=== PATIENT | male | born 1965 | race Caucasian/White ===

== ENCOUNTER 2020-04-29 06:47 | Outpatient (NON) | payer BC, SELFPAY ==
[2020-04-29 22:14] LABS: SARS-CoV-2 RNA PCR Negative
== END 2020-04-29 06:48 ==
LOC: ANHCOVIDDT 06:58
PROVIDERS: Visit Provider Nurse Practitioner Family
DX: Z20.828 Contact with and (suspected) exposure to other viral communicable diseases (principal)
CPT/HCPCS: 87635; C9803; U0003

== ENCOUNTER → 2020-05-04 14:39 | Outpatient (CLI) | payer BC, SELFPAY ==
--- NOTE | ~2020-05-04 | XR_ITS ---
EXAMINATION: XR chest 2V EXAM DATE: 05/04/2020 14:59 INDICATION: R06.02 - Shortness of breath . TECHNIQUE: Frontal and lateral projections of the chest obtained and reviewed. There is no prior vero dy for comparison. FINDINGS: The cardiac silhouette is enlarged. There is pulmonary vascular congestion. Possible mild pulmonary edema. There are small bilateral pleural effusions. Overall appearance is consistent with m ild CHF exacerbation. There is no pneumothorax suspected. No focal airspace disease. There are no oss eous abnormalities identified. IMPRESSION: Findings consistent with mild CHF exacerbation. Reviewed, dictated and finalized at location B. TECHNICIAN
== END ==
PROVIDERS: PCP Nurse Practitioner Family; Visit Provider Nurse Practitioner Family
DX: R06.02 Shortness of breath (principal); R91.8 Other nonspecific abnormal finding of lung field
CPT/HCPCS: 71046

== ENCOUNTER 2020-05-04 15:30 | Outpatient (CLI) | payer BC, SELFPAY ==
--- NOTE | 2020-05-04 15:45 | ECG_ITS ---
Measurements Intervals [place] Rate: 129 P: [place]: 0 QRS: 50 QRSD: 110 T: -13 QT: 301 QTc: 441 Interpretive Statements ATRIAL FIBRILLATION WITH RAPID VENTRICULAR RESPONSE VENTRICULAR PREMATURE COMPLEXES NONSPECIFIC ST & T-WAVE ABNORMALITY- INF/LAT LEADS ABNORMAL ECG Electronically Signed On 05-04-2020 18:49:26 INSURANCE POLICY ISSUE CLERK by Mauricio Norris D.O.
== END 2020-05-04 15:31 | disposition home or self-care (01) ==
LOC: ANHLAB 15:33
PROVIDERS: PCP Nurse Practitioner Family; Visit Provider Nurse Practitioner Family
DX: R00.2 Palpitations (principal); I48.91 Unspecified atrial fibrillation
CPT/HCPCS: 93005

== ENCOUNTER 2020-05-05 10:32 | Outpatient (CLI) | payer BC, SELFPAY ==
[2020-05-05 11:08] LABS: Basophils Absolute Auto 0.1 K/mm3 (0.0-0.1); Basophils Percent Auto 0.8 % (0.2-1.2); Eosinophils Absolute Auto 0.1 K/mm3 (0-0.3); Eosinophils Percent Auto 1.7 % (0-4.4); Hematocrit 44.5 % (42.0-52.0); Hemoglobin 14.3 g/dL (14.0-18.0); Immature Granulocyte Absolute 0.03 K/mm3 (0.00-0.031); Immature Granulocyte Percent A 0.4 % (0-0.5); Lymphocytes Absolute Auto 1.81 K/mm3 (0.9-3.2); Lymphocytes Percent Auto 21.4 % (18.3-44.2); Mean Corpuscular HGB Conc 32.1 g/dl (32-36); Mean Corpuscular Volume 81.1 fl (80-100); Mean Platelet Volume 9.3 fl (7.4-10.4); Monocytes Absolute Auto 0.8 K/mm3 (0.1-0.6); Monocytes Percent Auto 9.1 % (2.6-8.5); Neutrophils Absolute Auto 5.7 K/mm3 (1.3-6.7); Neutrophils Percent Auto 66.6 % (45.5-73.1); Platelet Count Result 287 k/mm3 (150-375); Red Blood Count 5.49 M/mm3 (4.6-6.20); Red Cell Distribution Width 14.3 % (11.5-14.5); White Blood Count 8.5 K/mm3 (4.5-10.0)
[2020-05-05 11:27] LABS: Alanine Aminotransferase 40 U/L (4-50); Albumin Level 3.9 g/dL (3.5-5.1); Alkaline Phosphatase 44 U/L (38-126); Anion Gap 7 mmol/L (8-16); Aspartate Amino Transferase 32 U/L (17-59); Bilirubin,Total 0.6 mg/dL (0.2-1.3); Blood Urea Nitrogen 20 mg/dL (9-20); Calcium 8.6 mg/dL (8.4-10.2); Carbon Dioxide 25 mmol/L (22-30); Chloride 106 mmol/L (98-107); Estimated Glomerular Filt Rate 53; Glucose 100 mg/dL (75-110); Magnesium 2.4 mg/dL (1.6-2.3); Potassium 4.3 mmol/L (3.4-5.0); Sodium 138 mmol/L (137-145)
[2020-05-05 11:33] LABS: NT Pro B Type Natriuretic Pept 4380 PG/ML (5-100)
== END 2020-05-05 10:33 | disposition home or self-care (01) ==
PROVIDERS: PCP Nurse Practitioner Family; Visit Provider Nurse Practitioner Family
DX: I48.91 Unspecified atrial fibrillation (principal); E03.9 Hypothyroidism, unspecified
CPT/HCPCS: 36415; 80053; 83735; 83880; 84443; 85025

== ENCOUNTER 2020-05-08 08:46 | Outpatient (CLI) | payer BC, SELFPAY ==
[2020-05-08 09:21] LABS: Alanine Aminotransferase 39 U/L (4-50); Alkaline Phosphatase 34 U/L (38-126); Anion Gap 8 mmol/L (8-16); Aspartate Amino Transferase 34 U/L (17-59); Bilirubin,Total 0.7 mg/dL (0.2-1.3); Blood Urea Nitrogen 20 mg/dL (9-20); Carbon Dioxide 28 mmol/L (22-30); Chloride 103 mmol/L (98-107); Estimated Glomerular Filt Rate 58; Glucose 118 mg/dL (75-110); Magnesium 2.4 mg/dL (1.6-2.3); Potassium 4.6 mmol/L (3.4-5.0); Sodium 139 mmol/L (137-145)
[2020-05-08 09:30] LABS: NT Pro B Type Natriuretic Pept 3800 PG/ML (5-100)
== END 2020-05-08 08:47 | disposition home or self-care (01) ==
PROVIDERS: PCP Nurse Practitioner Family; Visit Provider Nurse Practitioner Family
DX: I50.9 Heart failure, unspecified (principal); E83.41 Hypermagnesemia
CPT/HCPCS: 36415; 80053; 83735; 83880

== ENCOUNTER 2020-05-08 16:06 | Inpatient (IN) | payer BC, SELFPAY ==
[2020-05-08] VITALS (8 sets, daily range): BP systolic 103–152; BP diastolic 71–123; PULSE 104–132; RESP 18–31; TEMP 36.6; O2SAT 94–96; BMI 42.7
--- NOTE | ~2020-05-08 | US_ITS ---
EXAMINATION: US venous doppler [facility] DATE: 05/09/2020 14:38 INDICATION: Lower limb edema. TECHNIQUE: Grayscale ultrasound images without and with compression and Doppler ultrasound images of the bilateral lower extremity veins were obtained. COMPARISON: Ultrasound 01/20/2017 FINDINGS: The visualized portions of right common femoral vein, profunda (deep) femoral vein, femoral vein, pop liteal vein, peroneal veins, posterior tibial veins, and greater saphenous vein outflow are patent. The visualized portions of left common femoral vein, profunda femoral vein, femoral vein, popliteal v ein, peroneal veins, posterior tibial veins, and greater saphenous vein outflow are patent. IMPRESSION: 1. No deep venous thrombosis. Reviewed, dictated and finalized at location B. PASTEURIZER
--- NOTE | ~2020-05-08 | XR_ITS ---
EXAMINATION: XR chest 2V DATE: 05/08/2020 16:39 INDICATION: Arrhythmia. Shortness of breath. TECHNIQUE: Frontal and lateral views of the chest were obtained. COMPARISON: Chest 2 views 05/04/2020, CT abdomen and pelvis 05/08/2006 FINDINGS: There are small pleural effusions. There is mild atelectasis at the lung bases. No pneumoth orax. Cardiomegaly is noted. IMPRESSION: 1. Small pleural effusions. 2. Cardiomegaly. Reviewed, dictated and finalized at location B. ORATE ACCOUNT EXECUTIVE
--- NOTE | 2020-05-08 16:19 | ECG_ITS ---
Measurements Intervals [place] Rate: 125 P: [place]: 0 QRS: 44 QRSD: 107 T: -34 QT: 329 QTc: 474 Interpretive Statements ATRIAL FIBRILLATION WITH RAPID VENTRICULAR RESPONSE VENTRICULAR PREMATURE COMPLEXES NONSPECIFIC ST & T-WAVE ABNORMALITY- INF/LAT LEADS ABNORMAL ECG Electronically Signed On 05-08-2020 20:04:17 RADIO CONTROL CRANE OPERATOR by Mauricio Norris D.O.
[2020-05-08] MEDS: dilTIAZem HCl INJ 25 MG/5 ML VIAL 10 MG IV PUSH (16:30)
[2020-05-08 16:39] LABS: Basophils Absolute Auto 0.1 K/mm3 (0.0-0.1); Basophils Percent Auto 0.7 % (0.2-1.2); Eosinophils Absolute Auto 0.2 K/mm3 (0-0.3); Eosinophils Percent Auto 1.9 % (0-4.4); Hematocrit 46.2 % (42.0-52.0); Hemoglobin 15.2 g/dL (14.0-18.0); Immature Granulocyte Absolute 0.02 K/mm3 (0.00-0.031); Immature Granulocyte Percent A 0.2 % (0-0.5); Lymphocytes Absolute Auto 1.98 K/mm3 (0.9-3.2); Lymphocytes Percent Auto 24.6 % (18.3-44.2); Mean Corpuscular HGB Conc 32.9 g/dl (32-36); Mean Corpuscular Hemoglobin 26.8 pg (26-34); Mean Corpuscular Volume 81.3 fl (80-100); Mean Platelet Volume 9.7 fl (7.4-10.4); Monocytes Absolute Auto 0.7 K/mm3 (0.1-0.6); Monocytes Percent Auto 8.1 % (2.6-8.5); Neutrophils Absolute Auto 5.2 K/mm3 (1.3-6.7); Neutrophils Percent Auto 64.5 % (45.5-73.1); Platelet Count Result 278 k/mm3 (150-375); Red Blood Count 5.68 M/mm3 (4.6-6.20); Red Cell Distribution Width 14.5 % (11.5-14.5); White Blood Count 8.1 K/mm3 (4.5-10.0)
[2020-05-08 16:52] LABS: Anion Gap 9 mmol/L (8-16); Blood Urea Nitrogen 21 mg/dL (9-20); Calcium 8.8 mg/dL (8.4-10.2); Carbon Dioxide 23 mmol/L (22-30); Chloride 106 mmol/L (98-107); Estimated CRCL calculation 100 ml/min; Estimated Glomerular Filt Rate 58; Glucose 98 mg/dL (75-110); Potassium 4.4 mmol/L (3.4-5.0); Sodium 138 mmol/L (137-145)
[2020-05-08 16:53] LABS: Prothrombin Time 13.4 Seconds (11.1-14.7)
[2020-05-08 16:54] LABS: Partial Thromboplastin Time 27.2 SECONDS (22.3-36.8)
[2020-05-08] MEDS: dilTIAZem HCl INJ 25 MG/5 ML VIAL 15 MG IV PUSH (16:59)
[2020-05-08 17:04] LABS: Troponin I 0.012 ng/mL (0.000-0.034)
--- NOTE | 2020-05-08 17:18 | ED.SOB ---
HPI - SOB/Dyspnea General Chief Complaint: Shortness of Breath/Dyspnea Stated Complaint: A-Fib Time Seen by Provider: 05/08/20 16:11 History of Present Illness HPI Narrative: Patient is a 55-year-old male who presents ER with shortness of breath. Reported symptoms been ongoing for couple weeks. Initially it was related to sinus congestion and sinus infection but since cleared up. Reports because of shortness of breath continues is physician had ordered an outpatient BNP that was elevated so he was started on metoprolol and Lasix. Symptoms persist so he was sent to the ER. No previous history of irregular heartbeat or other cardiac issue. Reports he has had some chest pressure over the course of weeks related to the shortness of breath but none currently. No fevers or chills or sweats. No productive cough. Related Data Home Medications Medication Instructions Recorded Confirmed furosemide 20 mg PO QPM 05/08/20 05/08/20 furosemide 40 mg PO DAILY 05/08/20 05/08/20 metoprolol succinate 50 mg PO QPM 05/08/20 05/08/20 Allergies Allergy/AdvReac Type Severity Reaction Status Date / Time No Known Allergies Allergy Unknown Verified 05/08/20 21:18 Review of Systems Review of Systems: All systems reviewed & are unremarkable except as noted in HPI and below Constitutional: Constitutional: Denies chills, Denies fever(s) and Denies weakness ENT: Reports nasal congestion and Denies sore throat Cardiovascular: Cardiovascular: Reports chest pain and Denies radiating jaw, neck or arm pain Respiratory: Respiratory: Denies cough, Reports dyspnea and Denies wheezing [facility] Past Medical History Medical History (Updated 05/09/20 @ 00:55 by Vlad Oliva MD) Hyperlipidemia Joint pain Right knee and left ankle Surgical History Surgical History (Updated 05/08/20 @ 21:41 by Kristin Menjivar NP) H/O hand surgery Right pointer finger tendon repair History of colonoscopy with polypectomy (~03/2017) Family History Family History Mother Family history of thyroid disease Dementia Father Family history of malignant neoplasm of stomach Sibling Asthma Cardiac defibrillator in place Social History Social History (Updated 05/08/20 @ 21:42 by Kristin Menjivar NP) Social History: The patient resides with his who is a durable power tractor operator laser leveling for healthcare. Patient desires to be a full code. The patient has 3 children who are well and healthy. 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 Patient is lifelong nonsmoker. No marijuana or substance abuse he rarely drinks. Smoking status: Never smoker Second hand tobacco smoke exposure: No Alcohol intake: never Substance use: never Living arrangements: with family Occupation/Education: occupation Spiritual care concerns: No Exam Narrative: Exam Narrative: GENERAL: Well-appearing, well-nourished, and in no acute distress. HEAD: Normocephalic, atraumatic. CHEST: Clear to auscultation. No respiratory distress. HEART: Irregular regular rate and rhythm is tachycardic. Normal peripheral pulses. ABDOMEN: Soft, nontender, nondistended. EXTREMITIES: Normal range of motion. No edema. SKIN: Warm, dry, no rash. NEURO: Alert and oriented x3. PSYCH: Normal mood and affect. Course Course Emergency Course: Discussed with Dr. Hinson. Admit to hospitalist. Give oral diltiazem and lovenox 1 mg/kg. Vital Signs Vital signs: Vital Signs Pulse Rate 132 H 05/08/20 16:14 Respiratory Rate 31 H 05/08/20 16:14 Blood Pressure 152/123 H 05/08/20 16:14 Pulse Oximetry 96 05/08/20 16:14 Temperature 97.9 F 05/08/20 23:33 Pulse Rate 109 H 05/08/20 23:33 Respiratory Rate 20 05/08/20 23:33 Blood Pressure 103/71 05/08/20 23:33 Pulse Oximetry 95 05/08/20 23:33 MDM - SOB/Dyspnea Lab Data Result diagrams: 05/08/20 16:22 05/08/20 16:22 Labs: Lab Results
[2020-05-08] MEDS: ENOXAPARIN 120 MG/0.8 ML SYRINGE 177 MG SUB-Q (19:30)
[2020-05-08] MEDS: dilTIAZem HCL 60 MG TABLET PO (19:30)
[2020-05-08 19:59] LABS: Troponin I 0.012 ng/mL (0.000-0.034)
--- NOTE | 2020-05-08 21:31 | PM.IMHP ---
H&P: HPI History of Present Illness Date/Time: 05/08/20 21:31 Chief complaint: afib, chest pain Narrative: Ok Jeong is a 55 year old male who stated that he started having problems about 3 weeks ago. The patient stated that he typically gets sinus infections and he thought that had a sinus infection about 3 weeks ago. The patient was started on azithromycin which she stated helped some he was having some posterior headaches and some drainage some postnasal drainage which was making him cough. But he did not have any fever chills. Patient stated that he felt like he was congested. He stated initially the congestion just felt like it was in the morning when he 1st woke up he thought it was from all the drainage and with clear during the day but then the patient stated that it started to stay there all day long. He was short of breath with exertion. He has not had any previous heart problems no chest pain other than the chest pressure. He has not seen a entry level truck driver. Approximately 4 days ago the patient was seen by his primary direct care supervisor and was found to be in atrial fibrillation with a rapid heart rate in the 1 teens. Patient was started on Lasix and metoprolol. The patient also has been having some swelling to his lower extremities. He has not had any history is of DVTs 1st troponin was negative. Patient was found to be in AFib RVR today. The patient stated that the metoprolol helped him to get more rest but the Lasix did not help with the swelling. Patient was given aspirin and IV Cardizem x2 subcu Lovenox oral Cardizem. Cardiology was called orders were given for p.o. Cardizem. However the patient remained in the 1 teens and 120s so I held off on the p.o. and started him on a Cardizem drip. The patient has approximately 2+ pitting edema to lower extremities. An echo has been ordered. He has no previous history. 4 days ago was read as findings consistent with mild CHF exacerbation. He has had no prior history. Today's EKG was read as AFib RVR with heart rate in the 120s. Patient is being admitted observation IMU for AFib with RVR. Date of service 05/08/2020 Review of Systems Review of Systems: All systems reviewed & are unremarkable except as noted in HPI and below Constitutional: Constitutional: Reports as per HPI and Reports no additional constitutional complaints Eyes: Eyes: Reports as per HPI and Reports no additional eye complaints ENT: Reports system reviewed and no additional complaints, except as documented and Reports Normal hearing present Cardiovascular: Cardiovascular: Reports no additional cardiovascular complaints Respiratory: Respiratory: Reports no additional respiratory complaints and Reports no additional respiratory complaints Gastrointestinal: Gastrointestinal: Reports as per HPI and Reports no additional gastrointestinal complaints Musculoskeletal: Musculoskeletal: Reports no additional musculoskeletal complaints Integumentary/Breasts: Skin/Breast: Reports system reviewed and no additional complaints, except as docu and Reports as per HPI Neurologic: Reports system reviewed and no additional complaints, except as documented, Reports as per HPI and Reports Normal hearing present Psychiatric: Psychiatric: Reports no additional psychiatric complaints and Reports as per HPI Endocrine: Endocrine: Reports no additional endocrine complaints Hematologic/Lymphatic: Hematologic/Lymphatic: Reports no additional hematologic/lymphatic complaints Allergic/Immunologic: Allergic/Immunologic: Reports no additional allergic/immunologic complaints [facility] Past Medical History Medical History (Updated 05/08/20 @ 21:50 by Kristin Menjivar NP) Hyperlipidemia Joint pain Right knee and left ankle Surgical History Surgical History (Updated 05/08/20 @ 21:41 by Kirstin Menjivar NP) H/O hand surgery Right pointer finger tendon repair History of colonoscopy with polypectomy (~03/2017) Family History Famil
[2020-05-08] MEDS: FUROSEMIDE INJ 40 MG/4 ML VIAL IV PUSH (21:53)
[2020-05-08 22:31] LABS: Troponin I 0.013 ng/mL (0.000-0.034)
[2020-05-09] VITALS (16 sets, daily range): BP systolic 111–145; BP diastolic 77–103; PULSE 75–119; RESP 18–20; TEMP 36.1–36.7; O2SAT 96–99
[2020-05-09 04:58] LABS: Basophils Absolute Auto 0.1 K/mm3 (0.0-0.1); Eosinophils Absolute Auto 0.1 K/mm3 (0-0.3); Eosinophils Percent Auto 1.7 % (0-4.4); Hematocrit 42.9 % (42.0-52.0); Hemoglobin 13.8 g/dL (14.0-18.0); Immature Granulocyte Absolute 0.02 K/mm3 (0.00-0.031); Immature Granulocyte Percent A 0.3 % (0-0.5); Lymphocytes Absolute Auto 1.96 K/mm3 (0.9-3.2); Lymphocytes Percent Auto 27.3 % (18.3-44.2); Mean Corpuscular HGB Conc 32.2 g/dl (32-36); Mean Corpuscular Hemoglobin 26.3 pg (26-34); Mean Corpuscular Volume 81.7 fl (80-100); Mean Platelet Volume 9.6 fl (7.4-10.4); Monocytes Absolute Auto 0.7 K/mm3 (0.1-0.6); Monocytes Percent Auto 9.2 % (2.6-8.5); Neutrophils Absolute Auto 4.4 K/mm3 (1.3-6.7); Neutrophils Percent Auto 60.5 % (45.5-73.1); Platelet Count Result 248 k/mm3 (150-375); Red Blood Count 5.25 M/mm3 (4.6-6.20); Red Cell Distribution Width 14.4 % (11.5-14.5); White Blood Count 7.2 K/mm3 (4.5-10.0)
[2020-05-09 05:20] LABS: Lipase 82 U/L (23-300); Magnesium 2.5 mg/dL (1.6-2.3)
--- NOTE | 2020-05-09 06:00 | ECHO_ITS ---
Patient Info Name: Ok Jeong Age: 55 years : 1965 Gender: Male Ht: 75 in Wt: 342 lbs BSA: 2.93 m2 HR: 100 bpm BP: 145 / 91 mmHg Heart Rhythm: Atrial Fibrillation Technical Quality: Good Exam Date: 05/09/2020 10:16 AM Exam Location: [facility] Patient Status: Inpatient Admit Date: 05/08/2020 Staff Ordering Physician: Vlad Oliva MD [employer] Winder And Oiler: Carlo Hathaway RDCS Attending Provider: Chandler Wang MD Referring Physician: Pj VALDIVIA; Exam Type: CA echo dop color flow w con Study Info Indications I48.0 - Paroxysmal atrial fibrillation Complete two-dimensional, color flow and Doppler transthoracic echocardiogram is performed with contrast to opacify the left ventricle and to improve the deliniation of the left ventricle endocardial borders. Contrast/Agitated Saline Contrast/Ag. Saline: Definity Amount: 3.00 ml Administered By: Allyssa Hand RN Existing IV Access: Yes History/Risk Factors Atrial fibrillation; palptations, chest pain, SOB, CHF, edema. Summary 1. Mild LV enlargement, mild LVH, variable contractility due to atrial fibrillation, difficult to assess ejection fraction. LVEF is visually estimated at about 30-35%. Mild RV enlargement. Mild left atrial enlargement. Normal mitral valve structure, mild MR. No aortic stenosis. Unable to assess RVSP due to inadequate TR jet velocity. Atrial fibrillation. Left Ventricle Left ventricular chamber dimension is mildly enlarged. Left ventricular systolic function is normal, estimated at 30-35%. There is mildly increased left ventricular wall thickness. Left ventricular septal wall motion is normal. The left ventricular diastolic function is abnormal. Right Ventricle Right ventricular chamber dimension is mildly enlarged. Right ventricular systolic function is normal. Left Atria Left atrial chamber dimension is mildly enlarged. Right Atria Right atrial chamber dimension is normal. Aortic Valve The aortic valve is normal. There is no aortic valve stenosis. There is no aortic valve regurgitation. Pulmonic Valve There is mild pulmonic regurgitation. Mitral Valve The mitral valve has normal leaflets. There is mild mitral valve regurgitation. Tricuspid Valve The tricuspid valve leaflets are normal. There is no significant tricuspid valve stenosis. There is no tricuspid valve regurgitation. Pericardium/Pleural The pericardium appears epicardial fat pad. There is no pericardial effusion. Aorta The aortic root size at the sinus of Valsalva is normal. The prox ascending aorta size is normal. Left Ventricular Outflow Tract Name Value Normal LVOT 2D LVOT Diameter 2.08 cm LVOT Doppler LVOT Peak Gradient 5 mmHg LVOT Mean Gradient 3 mmHg LVOT VTI 17.00 cm LVOT VTI/AV VTI Ratio 0.72 LVOT Stroke Volume 57.79 ml LVOT CO 17.35 l/min LVOT CI
--- NOTE | 2020-05-09 07:15 | PC.NURSE ---
This patient, Ok Jeong, was admitted to IMU Room 205-01 on 05/08/2020. Patient/family oriented to hospital policies and general routines including ID bracelet, bed and alarms, visiting hours, pain management, procedures, bathroom and other care routines, personal items, smoking policy, room service/diet, and visiting hours. Information on how to activate the Rapid Response Team has been discussed. Patient/Family are encouraged to report perceived risks to care and to ask questions if they do not understand what they are told or what they should do.
[2020-05-09] MEDS: ENOXAPARIN 80 MG/0.8 ML SYRINGE 155 MG SUB-Q (09:08)
[2020-05-09] MEDS: POTASSIUM CHLORIDE 10 MEQ TABLET.ER PO (09:08)
[2020-05-09] MEDS: FUROSEMIDE INJ 40 MG/4 ML VIAL IV PUSH ×2 (09:08→17:34)
[2020-05-09 09:09] LABS: Hematocrit 43.3 % (42.0-52.0); Hemoglobin 14.1 g/dL (14.0-18.0); Mean Corpuscular HGB Conc 32.6 g/dl (32-36); Mean Corpuscular Hemoglobin 26.9 pg (26-34); Mean Corpuscular Volume 82.5 fl (80-100); Mean Platelet Volume 9.4 fl (7.4-10.4); Platelet Count Result 228 k/mm3 (150-375); Red Blood Count 5.25 M/mm3 (4.6-6.20); Red Cell Distribution Width 14.5 % (11.5-14.5); White Blood Count 6.4 K/mm3 (4.5-10.0)
[2020-05-09 09:24] LABS: Anion Gap 6 mmol/L (8-16); Blood Urea Nitrogen 21 mg/dL (9-20); Calcium 8.3 mg/dL (8.4-10.2); Carbon Dioxide 28 mmol/L (22-30); Chloride 104 mmol/L (98-107); Estimated CRCL calculation 93 ml/min; Estimated Glomerular Filt Rate 58; Glucose 148 mg/dL (75-110); Potassium 3.9 mmol/L (3.4-5.0); Sodium 138 mmol/L (137-145)
--- NOTE | 2020-05-09 09:42 | PM.CNCAR ---
Assessment and Plan Assessment and plan (1) Atrial fibrillation with rapid ventricular response: Code(s): I48.91 - Unspecified atrial fibrillation Status: Acute Assessment and Plan: 55 y/o male with h/o obesity otherwise no significant past medical history (however no medical follow up for many years) who presents with dyspnea, lower ext edema and A fib with RVR Will start Metoprolol at 50 mg BID. Continue Cardizem drip for now 2D echo ordered. If EF low with wean off Cardizem and up titrate BB He likely has DANIELLA suggested by body habitus. Will assess PA pressure and RV on echo. He will need outpatient sleep study CHADsVASC score is 1. He was started on therapeutic dose of Lovenox in ER. Will continue AC for now in case cardioversion needed if HR difficult to control or if EF low (2) CHF (congestive heart failure): Code(s): I50.9 - Heart failure, unspecified Status: Acute Assessment and Plan: Likely has diastolic CHF which is commonly seen in morbid obesity Continue IV lasix at 40 BID. Cr 1.4 on admission, down to 1.3 today. Monitor cr and electrolytes while diuresing Follow 2D echo to assess LV systolic and diastolic function If EF low then will need ischemic evaluation (3) Obesity: Code(s): E66.9 - Obesity, unspecified Status: Acute Assessment and Plan: Check fasting lipid profile and HgA1c History of Present Illness History of Present Illness Consult date/time: 05/09/20 09:42 55 y/o male with h/o obesity otherwise no significant past medical history (however no medical follow up for the last 4-5 years) who presents with dyspnea He developed upper resp symptoms in late Mar for which he had virtual visit with new PCP. He had negative COVID test and was treated with Azithromycin with improvement of symptoms. Following that he started to develop dyspnea which has been gradually getting worse. He had EKG on 05/04 that showed A fib with HR 129. He denies palpitations, dizziness, lightheadedness or chest pain. He reports chronic lower ext edema at baseline but feels it has gotten worse since dyspnea started. He was started on metoprolol and Lasix then saw his PCP in the office yesterday and was still in rapid A fib so he was instructed to go to ER. In ER EKG showed A fib ~ HR 125. He was started on Cardizem drip and his HR down to 90-100, goes to 120 when he gets up to the bathroom. He was also started on IV lasix. He feels somewhat better. Echo was ordered, has not been done yet Labs showed Cr 1.4. K 3.9, Mg 2.5. TSH 2.2. NT pro BNP 4000. Never smoker. Drinks alcohol socially His brother has defibrillator. Mother alive at 91 with no heart disease. Father of cancer. Reason For Visit: afib, chest pain Review of Systems Review of Systems: All systems reviewed & are unremarkable except as noted in HPI and below Constitutional: Constitutional: Denies fatigue and Denies headache(s) Eyes: Eyes: Denies blurry vision ENT: Reports Normal hearing present and Denies headache(s) Cardiovascular: Cardiovascular: Denies chest pain, Denies diaphoresis, Denies pedal edema, Denies leg edema, Denies lightheadedness, Denies palpitations and Denies dyspnea Respiratory: Respiratory: Denies cough and Denies dyspnea Gastrointestinal: Gastrointestinal: Denies abdominal pain Musculoskeletal: Musculoskeletal: Denies back pain Neurologic: Reports Normal hearing present and Denies headache(s) Psychiatric: Psychiatric: Denies anxiety Endocrine: Endocrine: Denies fatigue and Denies palpitations PMFSH Past Medical History Medical History (Updated 05/09/20 @ 10:16 by Ree Murillo MD) Hyperlipidemia Joint pain Right knee and left ankle Surgical History Surgical History (Updated 05/08/20 @ 21:41 by Kristin Menjivar NP) H/O hand surgery Right pointer finger tendon repair History of colonoscopy with polypectomy (~03/2017) Family History Family History (Revi
[2020-05-09] MEDS: PERFLUTREN LIPID MICROSPHERES 1.5 ML VIAL DILUTED TO 10 ML TOTAL VOLUME IV PUSH (10:41)
[2020-05-09] MEDS: METOPROLOL TARTRATE 50 MG TAB PO ×2 (13:08→21:11)
[2020-05-09] MEDS: lisinopriL 5 MG TABLET PO (13:36)
--- NOTE | 2020-05-09 15:46 | PM.IMPN ---
Progress Note: A&P Assessment and Plan (1) Atrial fibrillation: Code(s): I48.91 - Unspecified atrial fibrillation Status: Acute Assessment and Plan: Patient's heart rate remained elevated between 1 teens and 120s. I am holding the oral calcium channel singh in placing the patient on a Cardizem drip a low dose. His Ok score without congestive heart failure is 0 but if it is truly congestive heart failure that is Ok Vasc score is 1. I did empirically start him on therapeutic subcu Lovenox. Further recommendation per Cardiology. An echo has been ordered. Patient's troponin is negative. He has had no previous history of atrial fibrillation. Check thyroid level in the a.m.. Check lipid panel in the a.m.. 05/09/20 15:46 patient is a 55-year-old male morbidly obese initially patient was seen by primary care with complaint of shortness of breath cough and congestion he was started on Zithromax his symptoms did improve however shortness of breath continue to present he was later seen by the primary care an EKG was done which showed atrial fibrillation with RVR at the rate of 129, patient was started on metoprolol 50 mg q.day and Lasix 40 mg p.o., patient's symptoms were persistenting, he was again seen in the primary care's office and repeat EKG again showed AFib with RVR and patient was transferred to ED for further evaluation, patient was given IV diltiazem the rate persistent and patient was started diltiazem drip and transferred to IMU, patient Ok score is 1 patient is anticoagulated with Lovenox will continue in the event patient needs cardioversion, patient is seen by Cardiology recommended to continue present management and trend the rate in hope the patient will convert to sinus rhythm if not patient may need cardioversion, patient had cardiac echo showed moderately decreased systolic function with ejection fraction of 35% abnormal diastolic function, mild enlargement off right and left atrial. will continue to monitor will trend the rate and rhythm and further recommendation to follow. (2) CHF (congestive heart failure): Code(s): I50.9 - Heart failure, unspecified Status: Acute Assessment and Plan: An echo has been ordered for the patient. BNP noted to be 3800. Troponins negative x2. (3) Obesity due to excess calories: Code(s): E66.09 - Other obesity due to excess calories Status: Acute Assessment and Plan: Will check a lipid panel. Subjective Date/time seen: 05/09/20 15:46 patient is a 55-year-old male morbidly obese initially patient was seen by primary care with complaint of shortness of breath cough and congestion he was started on Zithromax his symptoms did improve however shortness of breath continue to present he was later seen by the primary care an EKG was done which showed atrial fibrillation with RVR at the rate of 129, patient was started on metoprolol 50 mg q.day and Lasix 40 mg p.o., patient's symptoms were persistenting, he was again seen in the primary care's office and repeat EKG again showed AFib with RVR and patient was transferred to ED for further evaluation, patient was given IV diltiazem the rate persistent and patient was started diltiazem drip and transferred to IMU, patient Ok score is 1 patient is anticoagulated with Lovenox will continue in the event patient needs cardioversion, patient is seen by Cardiology recommended to continue present management and trend the rate in hope the patient will convert to sinus rhythm if not patient may need cardioversion, patient had cardiac echo showed moderately decreased systolic function with ejection fraction of 35% abnormal diastolic function, mild enlargement off right and left atrial. will continue to monitor will trend the rate and rhythm and further recommendation to follow. Review of Systems Review of Systems: All systems reviewed & are unremarkable except as noted in HPI and below Exam Narrative
[2020-05-10] VITALS (24 sets, daily range): BP systolic 111–143; BP diastolic 65–100; PULSE 77–121; RESP 12–20; TEMP 36–36.7; O2SAT 93–99
[2020-05-10 04:46] LABS: Hematocrit 42.9 % (42.0-52.0); Hemoglobin 14.1 g/dL (14.0-18.0); Mean Corpuscular HGB Conc 32.9 g/dl (32-36); Mean Corpuscular Hemoglobin 26.5 pg (26-34); Mean Corpuscular Volume 80.5 fl (80-100); Mean Platelet Volume 9.2 fl (7.4-10.4); Platelet Count Result 222 k/mm3 (150-375); Red Blood Count 5.33 M/mm3 (4.6-6.20); Red Cell Distribution Width 14.2 % (11.5-14.5); White Blood Count 7.1 K/mm3 (4.5-10.0)
[2020-05-10 05:01] LABS: Anion Gap 7 mmol/L (8-16); Blood Urea Nitrogen 21 mg/dL (9-20); Calcium 8.4 mg/dL (8.4-10.2); Carbon Dioxide 27 mmol/L (22-30); Chloride 106 mmol/L (98-107); Cholesterol 120 mg/dL (0-200); Estimated CRCL calculation 93 ml/min; Estimated Glomerular Filt Rate 58; Glucose 90 mg/dL (75-110); HDL Direct 21 mg/dL; Magnesium 2.5 mg/dL (1.6-2.3); Potassium 3.8 mmol/L (3.4-5.0); Sodium 140 mmol/L (137-145); Triglycerides 162 mg/dL (<150)
[2020-05-10 05:11] LABS: LDL Cholesterol Direct 66 mg/dL
--- NOTE | 2020-05-10 08:59 | PM.PNCARD ---
Progress Note: A&P Assessment and Plan (1) Atrial fibrillation with rapid ventricular response: Code(s): I48.91 - Unspecified atrial fibrillation Status: Acute Assessment and Plan: 55 y/o male with h/o obesity otherwise no significant past medical history (however no medical follow up for many years) who presents with dyspnea, lower ext edema, congestive heart failure and A fib with RVR 2D echo with new discovery of cardiomyopathy. Ischemic Vs non ischemic?. Will plan [facility] this afternoon to find etiology of cardiomyopathy He is diuresing well and feels better. Able to lay flat now. Creatinine stable ~ 1.3. Continue IV lasix. He was started on metoprolol and Lisinopril. Further up titration as BP allows. His rate better controlled on Metoprolol. Goes up ~ 100s with exertion (walking to bathroom). Will add Digoxin today. No needfor IV load CHADsVASC score is 1. Will start ASA. If cath shows clean coronaries then cardiomyopathy could be tachy induced and in this case he would benefit from restoring sinus rhythm with cardioversion. If that is the case then will start AC, otherwise will use ASA for now. (2) CHF (congestive heart failure): Code(s): I50.9 - Heart failure, unspecified Status: Acute Assessment and Plan: Combined systolic and diastolic dysfunction Started BB/ABHIJIT. He likely has sleep apnea suggested by body habitus and symptoms. Will need further work up for that as outpatient (3) Obesity: Code(s): E66.9 - Obesity, unspecified Status: Acute Assessment and Plan: LDL 66. HgA1c 5 Subjective Date/time seen: 05/10/20 08:59 His breathing is remarkable better. Was able to sleep much better last night. Leg edema persists but also coming down. Review of Systems Review of Systems: All systems reviewed & are unremarkable except as noted in HPI and below Constitutional: Constitutional: Denies fatigue and Denies headache(s) Eyes: Eyes: Denies blurry vision ENT: Reports Normal hearing present and Denies headache(s) Cardiovascular: Cardiovascular: Denies chest pain, Denies diaphoresis, Denies pedal edema, Denies leg edema, Denies lightheadedness, Denies palpitations and Denies dyspnea Respiratory: Respiratory: Denies cough and Denies dyspnea Gastrointestinal: Gastrointestinal: Denies abdominal pain Musculoskeletal: Musculoskeletal: Denies back pain Neurologic: Reports Normal hearing present and Denies headache(s) Psychiatric: Psychiatric: Denies anxiety Endocrine: Endocrine: Denies fatigue and Denies palpitations Exam Narrative: Exam Narrative: Obese, in no acute distress Const: General: no acute distress Eyes: Sclera: sclerae normal Neck: Neck: no JVD Carotids: no bruits Resp: Effort & Inspection: normal respiratory effort Auscultation: clear to auscultation bilaterally Cardio: Heart sounds: no gallops, no murmurs and no rubs Other: Irregularly irregular. Tachy. No murmurs. +2 edema bilateral lower ext. JVD difficult to assess due to body habitus. Skin: General skin exam: normal color Neuro: Cranial nerves: Yes Normal hearing present Speech: normal speech Extrem: General: normal to inspection and no edema Psych: Affect: normal affect Objective Data Vital Signs Vital Signs: Vital Signs - 24 hr 05/09/20 10:00 05/09/20 12:00 05/09/20 13:08 Temperature 36.1 C L Pulse Rate 91 111 H 111 H Respiratory Rate 18 Blood Pressure 117/92 H Pulse Oximetry 98 05/09/20 14:00 05/09/20 16:00 05/09/20 18:00 Temperature 36.1 C L Pulse Rate 111 H 99 109 H Respiratory Rate 18 Blood Pressure 132/103 H Pulse Oximetry 97 05/09/20 19:42 05/09/20 20:00 05/09/20 21:11 Temperature 36.7 C Pulse Rate 119 H 105 H 108 H Respiratory Rate 20 Blood Pressure 111/77 Pulse Oximetry 99 05/09/20 22:00 05/10/20 00:00 05/10/20 02:00 Temperature 36.7 C Pulse Rate 97 91 105 H Respiratory Rate 20 Blood Pressure 1
[2020-05-10] MEDS: POTASSIUM CHLORIDE 10 MEQ TABLET.ER PO (09:42)
[2020-05-10] MEDS: lisinopriL 5 MG TABLET PO (09:42)
[2020-05-10] MEDS: FUROSEMIDE INJ 40 MG/4 ML VIAL IV PUSH ×2 (09:43→17:10)
[2020-05-10] MEDS: METOPROLOL TARTRATE 50 MG TAB PO ×2 (09:43→20:55)
--- NOTE | 2020-05-10 11:20 | PC.NURSE ---
Patient to cardiac medical laboratory manager via stretcher. Report given to LOLIS Croft.
--- NOTE | 2020-05-10 12:01 | WPDMODSED ---
Moderate Sedation Note-Pt Data Patient Data Allergies Allergy/AdvReac Type Severity Reaction Status Date / Time No Known Allergies Allergy Unknown Verified 05/08/20 21:18 Home Medications Medication Instructions Recorded Confirmed Type potassium chloride 10 mEq 10 meq PO DAILY #5 tablet 05/04/20 05/08/20 Rx tablet,extended release furosemide 20 mg PO QPM 05/08/20 05/08/20 History furosemide 40 mg PO DAILY 05/08/20 05/08/20 History metoprolol succinate 50 mg PO QPM 05/08/20 05/08/20 History Current Medications: Active Medications Acetaminophen (Acetaminophen 325 Mg Tablet) 650 mg PO Q4H PRN PRN Reason: Mild Pain (1-3) or Fever Hydrocodone Bitart/Acetaminophen (Hydrocodone/Acetaminophen (*Crx) 5-325 Mg Tablet) 1 tab PO Q4H PRN PRN Reason: Pain Rated 4-6 Aspirin (Aspirin 325 Mg Tablet) 325 mg PO DAILY@0800 [facility] Digoxin (Digoxin Tab 125 Mcg Tablet) 125 mcg PO QAM [facility] Furosemide (Furosemide Inj 40 Mg/4 Ml Vial) 40 mg IV PUSH BID [facility] Last Admin: 05/10/20 09:43 Dose: 40 mg Documented by: Lisinopril (Lisinopril 5 Mg Tablet) 5 mg PO QAM [facility] Last Admin: 05/10/20 09:42 Dose: 5 mg Documented by: Metoprolol Tartrate (Metoprolol Tartrate 50 Mg Tab) 50 mg PO Q12HR [facility] Last Admin: 05/10/20 09:43 Dose: 50 mg Documented by: Morphine Sulfate (Morphine Sulfate (*Crx) 4 Mg/Ml Inj) 4 mg IV PUSH Q2H PRN PRN Reason: Pain Rated 7-10 Ondansetron HCl (Ondansetron Inj 4 Mg/2 Ml Vial) 4 mg IV PUSH Q4H PRN PRN Reason: Nausea Potassium Chloride (Potassium Chloride 10 Meq Tablet.Er) 10 meq PO DAILY [facility] Last Admin: 05/10/20 09:42 Dose: 10 meq Documented by: Sedation/Anesthesia: No previous sedation/anesthesia problems (including family history). [facility] Past Medical History Medical History (Updated 05/09/20 @ 10:16 by Ree Murillo MD) Hyperlipidemia Joint pain Right knee and left ankle Surgical History Surgical History (Updated 05/08/20 @ 21:41 by Kristin Menjivar NP) H/O hand surgery Right pointer finger tendon repair History of colonoscopy with polypectomy (~03/2017) Family History Family History Mother Family history of thyroid disease Dementia Father Family history of malignant neoplasm of stomach Sibling Asthma Cardiac defibrillator in place Social History Social History (Updated 05/08/20 @ 21:42 by Kristin Menjivar NP) Social History: The patient resides with his who is a durable power contract attorney for healthcare. Patient desires to be a full code. The patient has 3 children who are well and healthy. 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 Patient is lifelong nonsmoker. No marijuana or substance abuse he rarely drinks. Smoking status: Never smoker Second hand tobacco smoke exposure: No Alcohol intake: never Substance use: never Living arrangements: with family Occupation/Education: occupation Spiritual care concerns: No Mod Sed Physical Exam Physical Exam Pre Procedural Exam: Normal: Appearance, Eyes, Ears, Nose, Neck, Throat, Airway, Lungs, Heart Size, Heart Rate, Neuro Exam, Abdomen, Liver, Kidneys, Spleen, Breasts, Genitalia, Extremities ( significant edema noted) and Skin and Variation: Heart Rhythm (Atrial fibrillation) and Extremities ( significant edema noted) Hours since solid foods: 8 Hours since liquid intake: 8 Internal Medicine - PN: Obj Da Vital Signs Vital Signs: Vital Signs - 24 hr 05/09/20 13:08 05/09/20 14:00 05/09/20 16:00 Temperature 36.1 C L Pulse Rate 111 H 111 H 99 Respiratory Rate 18 Blood Pressure 132/103 H Pulse Oximetry 97 05/09/20 18:00 05/09/20 19:42 05/09/20 20:00 Temperature 36.7 C Pulse Rate 109 H 119 H 105 H Respiratory Rate 20 Blood Pressure 111/77 Pulse Oximetry 99 05/09/20 21:11 05/09/20 22:00 05/10/20 00:00 Temperature 36.7 C Pulse Rate 108 H 97 91 Respiratory Rate 20 Blood Pressure 115/84 Pulse Oximetry 98
--- NOTE | 2020-05-10 12:02 | WPDCARDPROC ---
Cardiac Cath Procedure Note Date of procedure:: 05/10/20 Performing physician:: Danis Hinson MD Procedure: 1. Left heart catheterization, selective coronary angiogram. 2. Left ventricular angiogram. 3. Angio-Seal device for arterial hemostasis 4. Conscious sedation. Inspector Outside Steam Distribution: Dr. Danis Hinson Complications: None. Sedation: Conscious sedation, local anesthesia, using 1 mg of Versed said, 25 mcg of fentanyl, and using 1% lidocaine for local anesthesia. starting time is 11:37 a.m. ending time is 11:52 a.m. I instructed nurse Cynthia DANIELLE to administer the medications History: 55 years old gentleman with history of hypertension, history of obesity was admitted to the hospital because of congestive heart failure atrial fibrillation with rapid ventricular response. After further stabilization and treatment for his congestive heart failure was brought to the feed mill lab technician for elective cardiac catheterization for definitive evaluation of the cause of his congestive heart failure due to significant risk factors for coronary disease with high likelihood of underlying ischemic cardiomyopathy Technique: After informed consent was obtained from patient, was brought to the feed mill lab technician, put in the feed mill lab technician table, prepped and draped in usual sterile fashion. Five Mexican sheath was inserted into the right common femoral artery, through the sheath 5 Mexican JL4 catheter inserted, advanced to the left coronary artery, left coronary artery angiogram was obtained. The catheter was exchanged over guidewire into a 5 Mexican JR4 catheter, advanced to the right coronary artery, right coronary artery angiogram was obtained. The catheter then was exchanged over guidewire into this 5 Mexican pigtail catheter, advanced to left ventricle, left ventricular angiogram was not obtained due to elevated LVEDP. The catheter then was pulled, the sheath was pulled applying Angio-Seal device for arterial hemostasis. Patient tolerated the procedure no complication, taken from the feed mill lab technician to his room in stable condition stable vital signs. Hemodynamics: aortic pressure 104/48 . LV pressure 104/04 with LVEDP of 24 mmHg Angiographic findings: Left main: Medium size artery no significant disease or stenosis. Lad medium size artery showed minimal irregularity with no obstructive lesions Left circumflex artery, medium size artery, no significant disease or stenosis. RCA: Dominant vessel, large caliber, no significant disease or stenosis LV: was not done due to elevated LVEDP but from the images of the coronary he seems to have severe left ventricular systolic dysfunction Summary: no significant coronary disease, with severe left ventricular systolic dysfunction with nonischemic cardiomyopathy Recommendation: Maximum medical treatment. Risk factor modification. due to severe left ventricular systolic dysfunction he would need to have LifeVest and considering further evaluation for possible need for ICD in the future if left ventricular systolic function does not improve in 3 months
--- NOTE | 2020-05-10 13:25 | PC.NURSE ---
Patient returned to room following cardiac cath. Report received from LOLIS Medley.
[2020-05-10] MEDS: DIGOXIN TAB 125 MCG TABLET PO (17:10)
[2020-05-10] MEDS: RIVAROXABAN 20 MG TABLET PO (17:10)
--- NOTE | 2020-05-10 18:07 | PM.IMPN ---
Progress Note: A&P Assessment and Plan (1) Atrial fibrillation: Code(s): I48.91 - Unspecified atrial fibrillation Status: Acute Assessment and Plan: Patient's heart rate remained elevated between 1 teens and 120s. I am holding the oral calcium channel singh in placing the patient on a Cardizem drip a low dose. His Ok score without congestive heart failure is 0 but if it is truly congestive heart failure that is Ok Vasc score is 1. I did empirically start him on therapeutic subcu Lovenox. Further recommendation per Cardiology. An echo has been ordered. Patient's troponin is negative. He has had no previous history of atrial fibrillation. Check thyroid level in the a.m.. Check lipid panel in the a.m.. 05/10/20 18:07 patient is a 55-year-old male morbidly obese initially patient was seen by primary care with complaint of shortness of breath cough and congestion he was started on Zithromax his symptoms did improve however shortness of breath continue to present he was later seen by the primary care an EKG was done which showed atrial fibrillation with RVR at the rate of 129, patient was started on metoprolol 50 mg q.day and Lasix 40 mg p.o., patient's symptoms were persistenting, he was again seen in the primary care's office and repeat EKG again showed AFib with RVR and patient was transferred to ED for further evaluation, patient was given IV diltiazem the rate persistent and patient was started diltiazem drip and transferred to IMU, patient Ok score is 1 patient is anticoagulated with Lovenox will continue in the event patient needs cardioversion, patient is seen by Cardiology recommended to continue present management and trend the rate in hope the patient will convert to sinus rhythm if not patient may need cardioversion, patient had cardiac echo showed moderately decreased systolic function with ejection fraction of 35% abnormal diastolic function, mild enlargement off right and left atrial. will continue to monitor will trend the rate and rhythm and further recommendation to follow. 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 (2) CHF (congestive heart failure): Code(s): I50.9 - Heart failure, unspecified Status: Acute Assessment and Plan: An echo has been ordered for the patient. BNP noted to be 3800. Troponins negative x2. (3) Obesity due to excess calories: Code(s): E66.09 - Other obesity due to excess calories Status: Acute Assessment and Plan: Will check a lipid panel. Subjective Date/time seen: 05/10/20 18:07 patient is a 55-year-old male morbidly obese initially patient was seen by primary care with complaint of shortness of breath cough and congestion he was started on Zithromax his symptoms did improve however shortness of breath continue to present he was later seen by the primary care an EKG was done which showed atrial fibrillation with RVR at the rate of 129, patient was started on metoprolol 50 mg q.day and Lasix 40 mg p.o., patient's symptoms were persistenting, he was again seen in the primary care's office and repeat EKG again showed AFib with RVR and patient was transferred to ED for further evaluation, patient was given IV diltiazem the rate persistent and patient was started diltiazem drip and transferred to IMU, patient Ok score is 1 patient is anticoagulated with Lovenox will continue in the
[2020-05-11] VITALS (18 sets, daily range): BP systolic 108–140; BP diastolic 58–92; PULSE 88–116; RESP 14–20; TEMP 35.9–36.7; O2SAT 93–98
[2020-05-11 05:49] LABS: Hematocrit 44.5 % (42.0-52.0); Hemoglobin 14.5 g/dL (14.0-18.0); Mean Corpuscular HGB Conc 32.6 g/dl (32-36); Mean Corpuscular Hemoglobin 26.3 pg (26-34); Mean Corpuscular Volume 80.8 fl (80-100); Mean Platelet Volume 9.6 fl (7.4-10.4); Platelet Count Result 228 k/mm3 (150-375); Red Blood Count 5.51 M/mm3 (4.6-6.20); Red Cell Distribution Width 14.2 % (11.5-14.5); White Blood Count 7.5 K/mm3 (4.5-10.0)
[2020-05-11 05:55] LABS: Anion Gap 9 mmol/L (8-16); Blood Urea Nitrogen 20 mg/dL (9-20); Calcium 8.5 mg/dL (8.4-10.2); Carbon Dioxide 26 mmol/L (22-30); Chloride 105 mmol/L (98-107); Estimated CRCL calculation 93 ml/min; Estimated Glomerular Filt Rate 58; Glucose 92 mg/dL (75-110); Potassium 3.9 mmol/L (3.4-5.0); Sodium 140 mmol/L (137-145)
[2020-05-11] MEDS: lisinopriL 5 MG TABLET PO (09:10)
[2020-05-11] MEDS: FUROSEMIDE INJ 40 MG/4 ML VIAL IV PUSH ×2 (09:10→17:00)
[2020-05-11] MEDS: DIGOXIN TAB 125 MCG TABLET PO (09:10)
[2020-05-11] MEDS: METOPROLOL TARTRATE 50 MG TAB PO ×3 (09:10→21:12)
[2020-05-11] MEDS: POTASSIUM CHLORIDE 10 MEQ TABLET.ER PO (09:11)
--- NOTE | 2020-05-11 09:45 | PM.PNCARD ---
Progress Note: A&P Assessment and Plan (1) Atrial fibrillation with rapid ventricular response: Code(s): I48.91 - Unspecified atrial fibrillation Status: Acute Assessment and Plan: 55 y/o male with h/o obesity otherwise no significant past medical history (however no medical follow up for many years) who presents with dyspnea, lower ext edema, congestive heart failure and A fib with RVR 2D echo with new discovery of nonischemic cardiomyopathy as left heart catheterization demonstrated no significant coronary artery disease on 05/10/2020. He is diuresing well and feels better. Able to lay flat now. Creatinine stable ~ 1.3. Continue IV Lasix. He was started on metoprolol and lisinopril. His rate better controlled on metoprolol. Goes up ~ 100s with exertion (walking to bathroom). Added digoxin 0.125 mg daily with additional 0.25 mg IV dose once on 05/11/2020 to improve rate control. Continue Xarelto given severe nonischemic cardiomyopathy with atrial fibrillation. As cath shows clean coronaries, then cardiomyopathy could be tachycardia -induced, and in this case he may benefit from restoring sinus rhythm with cardioversion if needed, so started anticoagulation. He has normal TSH and minimally elevated magnesium level, with good LDL. If heart rate remains reasonable with continued dosing of digoxin including additional IV digoxin as above, patient appears stable for discharge later today upon receipt of his Lifevest, with follow-up in the Cardiology Clinic in 1 week. Continue his metoprolol as metoprolol succinate 100 mg daily, lisinopril 5 mg daily, Xarelto 20 mg with the evening meal, digoxin 0.125 mg daily, potassium chloride 10 mEq daily, and Lasix 40 mg orally daily as an outpatient. He will need careful follow-up of his creatinine and electrolytes as an outpatient in 5-7 days. (2) CHF (congestive heart failure): Code(s): I50.9 - Heart failure, unspecified Status: Acute Assessment and Plan: Combined systolic and diastolic dysfunction Started BB/ABHIJIT. He likely has sleep apnea suggested by body habitus and symptoms. Will need further work up for that as outpatient (3) Obesity: Code(s): E66.9 - Obesity, unspecified Status: Acute Assessment and Plan: LDL 66. HgA1c 5 Subjective Date/time seen: 05/11/20 09:45 Patient is resting in bed comfortably. He denies chest pain, dyspnea, orthopnea, or dizziness. He reports improved lower extremity edema. Patient was seen and examined, chart reviewed, case discussed with nurse. Review of Systems Review of Systems: All systems reviewed & are unremarkable except as noted in HPI and below Constitutional: Constitutional: Denies fatigue and Denies headache(s) Eyes: Eyes: Denies blurry vision ENT: Reports Normal hearing present and Denies headache(s) Cardiovascular: Cardiovascular: Denies chest pain, Denies diaphoresis, Denies pedal edema, Denies leg edema, Denies lightheadedness, Denies palpitations and Denies dyspnea Respiratory: Respiratory: Denies cough and Denies dyspnea Gastrointestinal: Gastrointestinal: Denies abdominal pain Musculoskeletal: Musculoskeletal: Denies back pain Neurologic: Reports Normal hearing present and Denies headache(s) Psychiatric: Psychiatric: Denies anxiety Endocrine: Endocrine: Denies fatigue and Denies palpitations Exam Narrative: Exam Narrative: Obese, in no acute distress Const: General: no acute distress Eyes: Sclera: sclerae normal Neck: Neck: no JVD Carotids: no bruits Resp: Effort & Inspection: normal respiratory effort Auscultation: clear to auscultation bilaterally Cardio: Heart sounds: no gallops, no murmurs and no rubs Other: Irregularly irregular. Tachy. No murmurs. trace to +1 edema bilateral lower ext. JVD difficult to assess due to body habitus. Skin: General skin exam: normal color Neuro: Cranial nerves: Yes Normal hearing present Speech: normal speech
[2020-05-11] MEDS: DIGOXIN INJ 250 MCG/ML 2 ML AMP (*BKC) IV PUSH (11:44)
--- NOTE | 2020-05-11 16:15 | PM.DS ---
DS: Admitting Diagnosis Admitting Diagnosis Admitting Diagnosis: afib, chest pain DS: Discharge Diagnosis Discharge Diagnosis (1) Atrial fibrillation: Code(s): I48.91 - Unspecified atrial fibrillation Status: Acute Assessment and Plan: Patient's heart rate remained elevated between 1 teens and 120s. I am holding the oral calcium channel singh in placing the patient on a Cardizem drip a low dose. His Ok score without congestive heart failure is 0 but if it is truly congestive heart failure that is Ok Vasc score is 1. I did empirically start him on therapeutic subcu Lovenox. Further recommendation per Cardiology. An echo has been ordered. Patient's troponin is negative. He has had no previous history of atrial fibrillation. Check thyroid level in the a.m.. Check lipid panel in the a.m.. 05/10/20 18:07 patient is a 55-year-old male morbidly obese initially patient was seen by primary care with complaint of shortness of breath cough and congestion he was started on Zithromax his symptoms did improve however shortness of breath continue to present he was later seen by the primary care an EKG was done which showed atrial fibrillation with RVR at the rate of 129, patient was started on metoprolol 50 mg q.day and Lasix 40 mg p.o., patient's symptoms were persistenting, he was again seen in the primary care's office and repeat EKG again showed AFib with RVR and patient was transferred to ED for further evaluation, patient was given IV diltiazem the rate persistent and patient was started diltiazem drip and transferred to IMU, patient Ok score is 1 patient is anticoagulated with Lovenox will continue in the event patient needs cardioversion, patient is seen by Cardiology recommended to continue present management and trend the rate in hope the patient will convert to sinus rhythm if not patient may need cardioversion, patient had cardiac echo showed moderately decreased systolic function with ejection fraction of 35% abnormal diastolic function, mild enlargement off right and left atrial. will continue to monitor will trend the rate and rhythm and further recommendation to follow. today patient had a cardiac catheterization it did not show any obstructive coronary artery however patient has moderately severe systolic dysfunction with ejection fraction of 35%, nonischemic cardiomyopathy, work study student recommending maximum medical management patient will need life vest and re-evaluation in 3 months to check for improvement systolic function if not patient will need ICD, currently patient denies any chest pain shortness of breath palpitation fever or chills, will monitor patient overnight once patient receives life vest will discharge the patient home tomorrow, is switched over to Xarelto. (2) CHF (congestive heart failure): Code(s): I50.9 - Heart failure, unspecified Status: Acute Assessment and Plan: An echo has been ordered for the patient. BNP noted to be 3800. Troponins negative x2. (3) Obesity due to excess calories: Code(s): E66.09 - Other obesity due to excess calories Status: Acute Assessment and Plan: Will check a lipid panel. DS: Summary Hospital Course Reason for hospitalization: Chief complaint: afib, chest pain Narrative: Ok Jeong is a 55 year old male who stated that he started having problems about 3 weeks ago. The patient stated that he typically gets sinus infections and he thought that had a sinus infection about 3 weeks ago. The patient was started on azithromycin which she stated helped some he was having some posterior headaches and some drainage some postnasal drainage which was making him cough. But he did not have any fever chills. Patient stated that he felt like he was congested. He stated initially the congestion just felt like it was in the morning when he 1st woke up he thought it was from all the drainage and with clear during the day but then the p
[2020-05-11] MEDS: RIVAROXABAN 20 MG TABLET PO (17:00)
[2020-05-11] MEDS: POTASSIUM CHLORIDE 20 MEQ PACKET (FOR LIQUID) 40 MEQ PO (18:19)
[2020-05-12] VITALS (7 sets, daily range): BP systolic 113–133; BP diastolic 58–87; PULSE 84–99; RESP 14–18; TEMP 35.4–36.1; O2SAT 98–100
[2020-05-12 05:53] LABS: Hematocrit 45.5 % (42.0-52.0); Hemoglobin 14.9 g/dL (14.0-18.0); Mean Corpuscular HGB Conc 32.7 g/dl (32-36); Mean Corpuscular Hemoglobin 27.5 pg (26-34); Mean Corpuscular Volume 83.9 fl (80-100); Mean Platelet Volume 9.6 fl (7.4-10.4); Platelet Count Result 215 k/mm3 (150-375); Red Blood Count 5.42 M/mm3 (4.6-6.20); Red Cell Distribution Width 14.3 % (11.5-14.5)
[2020-05-12 06:11] LABS: Anion Gap 9 mmol/L (8-16); Blood Urea Nitrogen 22 mg/dL (9-20); Calcium 8.4 mg/dL (8.4-10.2); Carbon Dioxide 26 mmol/L (22-30); Chloride 104 mmol/L (98-107); Estimated CRCL calculation 100 ml/min; Estimated Glomerular Filt Rate > 60; Glucose 81 mg/dL (75-110); Magnesium 2.5 mg/dL (1.6-2.3); Potassium 4.1 mmol/L (3.4-5.0); Sodium 139 mmol/L (137-145)
[2020-05-12] MEDS: DIGOXIN TAB 125 MCG TABLET PO (08:26)
[2020-05-12] MEDS: lisinopriL 5 MG TABLET PO (08:26)
[2020-05-12] MEDS: POTASSIUM CHLORIDE 10 MEQ TABLET.ER PO (08:27)
[2020-05-12] MEDS: FUROSEMIDE INJ 40 MG/4 ML VIAL IV PUSH (08:27)
[2020-05-12] MEDS: METOPROLOL TARTRATE 50 MG TAB PO (08:28)
--- NOTE | 2020-05-12 09:08 | PM.PNCARD ---
Progress Note: A&P Assessment and Plan (1) Atrial fibrillation: Code(s): I48.91 - Unspecified atrial fibrillation Status: Acute Assessment and Plan: 55 y/o male with h/o obesity otherwise no significant past medical history (however no medical follow up for many years) who presents with dyspnea, lower ext edema, congestive heart failure and A fib with RVR 2D echo with new discovery of nonischemic cardiomyopathy as left heart catheterization demonstrated no significant coronary artery disease on 05/10/2020. He is diuresing well and feels better. Able to lay flat now. Creatinine stable ~ 1.3. Continue Lasix. He was started on metoprolol and lisinopril. His rate well controlled on metoprolol and digoxin. Continue with these meds. Continue Xarelto given severe nonischemic cardiomyopathy with atrial fibrillation. Cath showed normal coronaries. He has normal TSH and minimally elevated magnesium level, with good LDL. Lifevest was placed while in hospital. Pt appears stable from cardiac standpoint. He is going home today. Fu in clinic in one week with Dr. Murillo. (2) CHF (congestive heart failure): Code(s): I50.9 - Heart failure, unspecified Status: Acute Assessment and Plan: Combined systolic and diastolic dysfunction Started BB/ABHIJIT. He likely has sleep apnea suggested by body habitus and symptoms. Will need further work up for that as outpatient Subjective Date/time seen: 05/12/20 Pt was seen and examined, chart was reviewed, case was d/w pt's nurse. He feels fine today. No CP, SOB or palpitations. Has LifeVest. Going home today. Review of Systems Review of Systems: All systems reviewed & are unremarkable except as noted in HPI and below Constitutional: Constitutional: Reports as per HPI Eyes: Eyes: Reports as per HPI ENT: Reports system reviewed and no additional complaints, except as documented and Reports as per HPI Cardiovascular: Cardiovascular: Reports as per HPI Respiratory: Respiratory: Reports as per HPI Gastrointestinal: Gastrointestinal: Reports as per HPI Genitourinary: Genitourinary: Reports as per HPI Musculoskeletal: Musculoskeletal: Reports as per HPI Exam Const: General: no acute distress Nutritional Appearance: well nourished Orientation/consciousness: patient oriented x3 HENMT: Head: normal to inspection and atraumatic Ears: hearing grossly normal bilaterally Face and sinus: normal facial exam Eyes: General: appearance normal, both eyes and all related structures Pupils: Equal, round and reactive pupils present EOM: EOMs intact bilaterally Neck: Neck: supple Chest: Chest palpation & inspection: normal inspection of the chest Resp: Effort & Inspection: normal respiratory effort and no respiratory distress Auscultation: clear to auscultation bilaterally Cardio: Jugular venous distension: no JVD Rate: regular rate Heart sounds: S1 normal heart sound present, S2 normal heart sound present and no murmurs Peripheral pulses: Peripheral pulses 2+ throughout GI: GI Palp: No abdominal tenderness Auscultation: normal bowel sounds Skin: General skin exam: normal color Neuro: General: patient oriented x3 Cranial nerves: Yes Equal, round and reactive pupils present Extrem: General: normal to inspection and no clubbing, cyanosis or edema Objective Data Vital Signs Vital Signs: Vital Signs - 24 hr 05/11/20 09:10 05/11/20 10:00 05/11/20 11:44 Temperature Pulse Rate 108 H 108 H 100 Respiratory Rate Blood Pressure Pulse Oximetry 05/11/20 12:00 05/11/20 14:00 05/11/20 15:39 Temperature 35.9 C L 36.6 C Pulse Rate 99 95 97 Respiratory Rate 14 18 Blood Pressure 113/64 113/86 Pulse Oximetry 93 97 05/11/20 16:00 05/11/20 17:00 05/11/20 18:00 Temperature Pulse Rate 116 H 114 H 115 H Respiratory Rate Blood Pressure Pulse Oximetry 05/11/20 19:45 05/11/20 20:00 05/11/20 22:00 Temperature 36.1 C L Pulse R
== END 2020-05-12 09:32 | disposition home or self-care (01) | DRG 286 ==
LOC: ANHED 16:46 → ANHIMU 19:31
PROVIDERS: Internal Medicine; Nurse Practitioner; Specialist; Admitting Provider Family Medicine; Emergency Provider Emergency Medicine; PCP Family Medicine; Visit Provider Family Medicine
PROC: 4A023N7 Measurement of Cardiac Sampling and Pressure, Left Heart, Percutaneous Approach (ICD-10-PCS; CPT 93452; principal; 2020-05-10 13:00)
PROC: 4A023N7 Measurement of Cardiac Sampling and Pressure, Left Heart, Percutaneous Approach (ICD-10-PCS; 2020-05-10 13:00)
DX: I48.91 Unspecified atrial fibrillation (principal); I50.41 Acute combined systolic (congestive) and diastolic (congestive) heart failure; Z68.41 Body mass index [BMI] 40.0-44.9, adult; I42.8 Other cardiomyopathies; E78.5 Hyperlipidemia, unspecified; G47.33 Obstructive sleep apnea (adult) (pediatric); E66.01 Morbid (severe) obesity due to excess calories
CPT/HCPCS: 36415; 71046; 80048; 80061; 83036; 83690; 83735; 84443; 84484; 85025; 85027; 85610; 85730; 93005; 93458; 93970; 96365; 96366; 96372; 96375; 96376; 99285; A9270; C1760; C1887; C1894; C8929; G0269; G0378; J1160; J1644; J1650; J1940; J2250; J3010; J7040; Q9957

== ENCOUNTER 2020-07-07 09:08 | Outpatient (CLI) | payer BC, SELFPAY ==
--- NOTE | 2020-08-18 10:11 | WPDHOMESLEEP ---
Sleep Study - Home Unattended Date of Study: 07/07/20 Ordering Provider: Amy Gatica NP Interpreting Physician: Paulette Vernon MD Home Sleep Study Type: Watch PAT Height: 1.91 m Weight: 166.015 kg Body Mass Index: 45.7 Neck Circumference (inches): 19 [place]: 9 Reason for Sleep Study witnessed apneas, constant loud snoring Sleep History Ok Jeong is a 55-year-old man who frequently snores loudly enough that others complain about it. He always snores. He occasionally awakens at night with heartburn, belching or coughing. He occasionally awakens from sleep feeling short of breath. He rarely has trouble sleeping with a cold. He occasionally wakes up gasping for breath at night. He frequently has breathing problems at night observed by others. He frequently sweats excessively at night. He rarely notices his heart pounding or beating irregularly night. He occasionally falls asleep during the day. He never falls asleep involuntarily, while driving, or while exerting physical effort. he does not have loss of muscle tone with strong emotion. He does not have daytime difficulties due to excessive sleepiness. He works as a business intelligence administrator. He does not feel paralyzed on waking or falling asleep and does not have vivid dreamlike scenes upon awakening or falling asleep. He is never afraid to go to sleep. He denies having nightmares. He rarely remembers his dreams. He occasionally has racing thoughts. He does not feel sad or depressed. He rarely feels anxious. He occasionally has muscular tension and notices parts of his body jerking. He rarely kicks at night. He rarely has crawling and aching feelings in his legs. He rarely has leg pain at night. He does not have morning jaw pain. He does not grind his teeth at night. He never is bothered by pain during the day or at night. He rarely wakes up feeling stiff in the morning with sore achy muscles are pain in the neck and spine. Normal bedtime 11:00 p.m. falling asleep within 30 minutes but sometimes up to 1 hour. He wakes up 1 or 2 times at night to use the bathroom or remove the covers because he is feeling hot. He is falling asleep again in less than 5 minutes. He wakes at 7:00 a.m.. Weekend schedule is the same. He estimates 6-7 hours of sleep at night. He does not take naps in general. A short nap 10 or 15 minutes may be refreshing. He frequently wakes up feeling refreshed in the morning. He occasionally has daytime sleepiness. He feels better in the morning compared to other times of day. Habits: He never smoked tobacco. Caffeine 1 serving a day. No alcohol or recreational drugs. [facility] Past Medical History Medical History (Updated 08/18/20 @ 10:31 by Paulette Vernon MD) Atrial fibrillation with rapid ventricular response CHF (congestive heart failure) Hyperlipidemia Joint pain Right knee and left ankle Surgical History Surgical History H/O hand surgery Right pointer finger tendon repair History of colonoscopy with polypectomy (~03/2017) Family History Family History Mother Family history of thyroid disease Dementia Father Family history of malignant neoplasm of stomach Sibling Asthma Cardiac defibrillator in place Social History Social History Social History: The patient resides with his who is a durable power state attorney for healthcare. Patient desires to be a full code. The patient has 3 children who are well and healthy. 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 Patient is lifelong nonsmoker. No marijuana or substance abuse he rarely drinks. Smoking status: Never smoker Second hand tobacco smoke exposure: No Alcohol intake: never Substance use: never Spiritual care concerns: No Medications Home Medications Medication Instructions Recorded Confirmed
[2020-08-18 10:47] VITALS: BMI 45.7
== END 2020-07-07 09:09 | disposition home or self-care (01) ==
PROVIDERS: PCP Family Medicine; Visit Provider Nurse Practitioner Family
DX: G47.10 Hypersomnia, unspecified (principal); R06.83 Snoring
CPT/HCPCS: 95800

== ENCOUNTER 2020-09-07 15:47 | Outpatient (CLI) | payer BC, SELFPAY | END 2020-09-07 15:48 | disposition home or self-care (01) | LOC: ANHCOVIDVC 15:47 | PROVIDERS: PCP Family Medicine | DX: Z23 Encounter for immunization (principal) | CPT/HCPCS: 0001A; 91300 ==

== ENCOUNTER 2020-09-28 15:44 | Outpatient (CLI) | payer BC, SELFPAY | END 2020-09-28 15:45 | disposition home or self-care (01) | LOC: ANHCOVIDVC 15:44 | PROVIDERS: PCP Family Medicine | DX: Z23 Encounter for immunization (principal) | CPT/HCPCS: 0002A; 91300 ==

== ENCOUNTER → 2020-11-07 01:49 | Outpatient (CLI) | payer BC, SELFPAY ==
[2020-11-07 18:55] LABS: SARS-CoV-2 RNA PCR Negative
== END ==
PROVIDERS: Nurse Practitioner Family; PCP Family Medicine; Visit Provider Internal Medicine Critical Care Medicine
DX: R68.89 Other general symptoms and signs (principal); Z20.822 Contact with and (suspected) exposure to COVID-19
CPT/HCPCS: C9803; U0003; U0005

== ENCOUNTER 2020-11-09 10:07 | Outpatient (CLI) | payer BC, SELFPAY ==
--- NOTE | 2020-11-28 13:51 | WPDSLEEPSTUD ---
Sleep Study Ordering Provider: Amy Gatica NP Interpreting Physician: Paulette Vernon MD Sleep Study Type: Split Polysomnogram Height: 1.91 m Weight: 163.293 kg Body Mass Index: 45.0 Neck Circumference (inches): 18 [place]: 9 Reason for Sleep Study Frequent snoring, occasional witnessed apnea, HST 07/07/2020 with AHI 2.4 which is normal; he had a central AHI of 2.2; presents for split night due to high suspicion of sleep apnea Sleep History Ok Jeong is a 55-year-old man who frequently snores loudly enough that others complain about it. He always snores. He occasionally awakens at night with heartburn, belching or coughing. He occasionally awakens from sleep feeling short of breath. He rarely has trouble sleeping with a cold. He occasionally wakes up gasping for breath at night. He frequently has breathing problems at night observed by others. He frequently sweats excessively at night. He rarely notices his heart pounding or beating irregularly night. He occasionally falls asleep during the day. He never falls asleep involuntarily, while driving, or while exerting physical effort. he does not have loss of muscle tone with strong emotion. He does not have daytime difficulties due to excessive sleepiness. He works as a business controller. He does not feel paralyzed on waking or falling asleep and does not have vivid dreamlike scenes upon awakening or falling asleep. He is never afraid to go to sleep. He denies having nightmares. He rarely remembers his dreams. He occasionally has racing thoughts. He does not feel sad or depressed. He rarely feels anxious. He occasionally has muscular tension and notices parts of his body jerking. He rarely kicks at night. He rarely has crawling and aching feelings in his legs. He rarely has leg pain at night. He does not have morning jaw pain. He does not grind his teeth at night. He never is bothered by pain during the day or at night. He rarely wakes up feeling stiff in the morning with sore achy muscles are pain in the neck and spine. Normal bedtime is 11:00 p.m. falling asleep within 30 minutes but sometimes taking up to an hour to fall asleep. He wakes up 1 or 2 times at night to use the bathroom or remove the covers because he is feeling hot. He is able to fall asleep again in less than 5 minutes. He wakes at 7:00 a.m.. Weekend schedule is the same. He estimates 6-7 hours of sleep at night. He does not take naps in general. A short nap 10 or 15 minutes may be refreshing. He frequently wakes up feeling refreshed in the morning. He occasionally has daytime sleepiness. He feels better in the morning compared to other times of day. Habits: He never smoked tobacco. Caffeine 1 serving a day. No alcohol or recreational drugs. [facility] Past Medical History Medical History Atrial fibrillation with rapid ventricular response CHF (congestive heart failure) Hyperlipidemia Joint pain Right knee and left ankle Surgical History Surgical History H/O hand surgery Right pointer finger tendon repair History of colonoscopy with polypectomy (~03/2017) Family History Family History Mother Family history of thyroid disease Dementia Father Family history of malignant neoplasm of stomach Sibling Asthma Cardiac defibrillator in place Social History Social History Social History: The patient resides with his who is a durable power real estate attorney for healthcare. Patient desires to be a full code. The patient has 3 children who are well and healthy. 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 No marijuana or substance abuse he rarely drinks. Smoking status: Never smoker Second hand tobacco smoke exposure: No Alcohol intake: never
[2020-11-28 14:37] VITALS: BMI 45.0
== END 2020-11-09 10:08 | disposition home or self-care (01) ==
LOC: ANHCSM 10:10
PROVIDERS: PCP Family Medicine; Visit Provider Nurse Practitioner Family
DX: G47.30 Sleep apnea, unspecified (principal); G47.33 Obstructive sleep apnea (adult) (pediatric)
CPT/HCPCS: 95811

== ENCOUNTER 2021-10-25 14:31 | Outpatient (CLI) | payer BC, SELFPAY ==
--- NOTE | ~2021-10-25 | US_ITS ---
EXAMINATION: US arterial ankle brachial ind DATE: 10/25/2021 17:09 INDICATION: Claudication. Other specified symptoms and signs involving the circulatory system. TECHNIQUE: Segmental pressures and plethysmographic and Doppler waveforms of the brachial and lower e xtremity arteries were obtained. COMPARISON: None. FINDINGS: Right and left brachial artery pressures of 134 mm Hg and 131 mm Hg, respectively, are concordant (no rmal difference <= 30 mmHg). The right ankle-brachial index (QUANG) is 1.30 (normal >= 0.9-1.0). Arterial Doppler waveforms are trip hasic at the ankle. The left QUANG is 1.34. Arterial Doppler waveforms are triphasic at the ankle. IMPRESSION: 1. No significant arterial occlusive disease. Reviewed, dictated and finalized at location A.
== END 2021-10-25 14:32 | disposition home or self-care (01) ==
LOC: ANHIMG 14:31
PROVIDERS: PCP Family Medicine; Visit Provider Nurse Practitioner Family
DX: R09.89 Other specified symptoms and signs involving the circulatory and respiratory systems (principal)
CPT/HCPCS: 93922

== ENCOUNTER 2022-03-22 09:30 | Outpatient (CLI) | payer BC, SELFPAY ==
[2022-03-22 18:23] LABS: Basophils Absolute Auto 0.1 K/mm3 (0.0-0.1); Basophils Percent Auto 1.5 % (0.2-1.2); Eosinophils Absolute Auto 0.4 K/mm3 (0-0.3); Eosinophils Percent Auto 4.8 % (0-4.4); Hematocrit 48.4 % (42.0-52.0); Hemoglobin 15.6 g/dL (14.0-18.0); Immature Granulocyte Absolute 0.03 K/mm3 (0.00-0.031); Immature Granulocyte Percent A 0.4 % (0-0.5); Lymphocytes Percent Auto 13.7 % (18.3-44.2); Mean Corpuscular HGB Conc 32.2 g/dl (32-36); Mean Corpuscular Hemoglobin 28.2 pg (26-34); Mean Corpuscular Volume 87.5 fl (80-100); Monocytes Absolute Auto 0.8 K/mm3 (0.1-0.6); Monocytes Percent Auto 10.8 % (2.6-8.5); Neutrophils Percent Auto 68.8 % (45.5-73.1); Platelet Count Result 240 k/mm3 (150-375); Red Blood Count 5.53 M/mm3 (4.6-6.20); Red Cell Distribution Width 13.7 % (11.5-14.5); White Blood Count 7.3 K/mm3 (4.5-10.0)
[2022-03-22 19:13] LABS: Alanine Aminotransferase 24 U/L (6-50); Albumin Level 4.1 g/dL (3.5-5.1); Alkaline Phosphatase 46 U/L (38-126); Anion Gap 10 mmol/L (8-16); Aspartate Amino Transferase 33 U/L (17-59); Bilirubin,Total 0.7 mg/dL (0.2-1.3); Blood Urea Nitrogen 19 mg/dL (9-20); Calcium 8.5 mg/dL (8.4-10.2); Carbon Dioxide 26 mmol/L (22-30); Chloride 101 mmol/L (98-107); Cholesterol 152 mg/dL (0-200); Estimated Glomerular Filt Rate 48; Glucose 79 mg/dL (65-110); HDL Direct 27 mg/dL; Potassium 4.4 mmol/L (3.4-5.0); Sodium 137 mmol/L (137-145); Triglycerides 217 mg/dL (<150)
[2022-03-22 19:24] LABS: LDL Cholesterol Direct 74 mg/dL
[2022-03-22 19:41] LABS: Prostate Specific Antigen 1.9 ng/mL (< OR = 4.0)
== END 2022-03-22 09:31 | disposition home or self-care (01) ==
LOC: ANHGOSHLAB 09:31
PROVIDERS: PCP Family Medicine; Visit Provider Nurse Practitioner Family
DX: E78.5 Hyperlipidemia, unspecified (principal); I10 Essential (primary) hypertension; Z12.5 Encounter for screening for malignant neoplasm of prostate
CPT/HCPCS: 36415; 80053; 80061; 84153; 84443; 85025; G0103

== ENCOUNTER 2022-05-10 00:14 | Day surgery (SDC) | payer BC, SELFPAY ==
[2022-05-02 15:27] VITALS: BMI 44.1
[2022-05-10 07:36] VITALS: BP 141/109; PULSE 82; RESP 19; TEMP 36.2; O2SAT 98
[2022-05-10] MEDS: LACTATED RINGERS 1,000 ML 150 ML IV CONT (07:43)
--- NOTE | 2022-05-10 07:51 | WPDANESEPPF ---
Anes - Initial Pre Proc Eval Procedure: Operation Date: 05/10/22 08:30 Proposed Procedures p Screening Colonoscopy - Dragan Katz MD Date/Time: 05/10/22 07:51 Surgeon: Dragan Katz MD Pre Op Diagnosis: neoplasm screening Patient Data Age: 57 Gender: M Height: 1.91 m Weight: 162.9 kg Last Vital Signs Temp 36.2 C L 05/10/22 07:36 Pulse 82 05/10/22 07:36 Resp 19 05/10/22 07:36 BP 141/109 H 05/10/22 07:36 Pulse Ox 98 05/10/22 07:36 O2 Del Method Room Air 05/10/22 07:36 Allergies Allergy/AdvReac Type Severity Reaction Status Date / Time No Known Allergies Allergy Unknown Verified 05/10/22 07:34 Home Medications Medication Instructions Recorded Confirmed Type digoxin 125 mcg (0.125 mg) tablet 125 mcg PO QAM #30 tabs 05/11/20 05/02/22 Rx lisinopril 5 mg tablet 5 mg PO QAM #30 tabs 05/11/20 05/02/22 Rx rivaroxaban 20 mg tablet (Xarelto) 20 mg PO DAILY@1700 #30 tabs 05/11/20 05/10/22 Rx amiodarone 200 mg tablet 200 mg PO DAILY 03/15/21 05/02/22 History furosemide 20 mg tablet 20 mg PO BID #60 tabs 03/15/21 05/02/22 Rx furosemide 20 mg tablet 40 mg PO DAILY 09/14/21 05/02/22 History metoprolol succinate 200 mg 200 mg PO DAILY 09/14/21 05/02/22 History tablet,extended release 24 hr potassium chloride 10 mEq 10 meq PO DAILY #90 tabs 10/01/21 05/02/22 Rx tablet,extended release Patient hx anesthesia problems: none Family hx anesthesia problems: none Results Review: All pre-operative results and documents have been reviewed as part of the pre-operative evaluation. [facility] Past Medical History Medical History Atrial fibrillation CHF (congestive heart failure) Essential hypertension Gout Joint pain Right knee and left ankle Surgical History Surgical History H/O hand surgery Right pointer finger tendon repair History of cardiac cath (~2019) History of colonoscopy with polypectomy (~03/2017) Family History Family History Mother Family history of thyroid disease Dementia Father Family history of malignant neoplasm of stomach Sibling Asthma Cardiac defibrillator in place Social History Social History Social History: The patient resides with his who is a durable power state attorney for healthcare. Patient desires to be a full code. The patient has 3 children who are well and healthy. 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 No marijuana or substance abuse he rarely drinks. Smoking status: Never smoker Second hand tobacco smoke exposure: No Alcohol intake: current Alcohol use details: on ocasionally Substance use: never Substance use type: does not use Living arrangements: with family Spiritual care concerns: No Anes - Eval Final PreProcedure Day of Procedure 05/10/22 07:51 Patient weight: morbidly obese Heart: irregular rhythm Lungs: clear to auscultation Airway: Mallampati scale class II Neurological: alert and oriented Last oral intake: >/= 8 hours ASA classification: III Emergent: no Anesthetic plan: proceed Anesthesia type and monitoring: general GIVS and standard monitoring Results Review: All pre-operative results and documents have been reviewed as part of the pre-operative evaluation. Informed Consent: The patient's anesthetic plan and its attendant risks and benefits were discussed with the patient/family/POA. Questions were solicited and answers provided to the satisfaction of the patient/family/POA.
--- NOTE | 2022-05-10 08:00 | PM.HPGS ---
History of Present Illness History of Present Illness Consent: Risks, benefits, and alternatives have been discussed and questions answered. Patient agrees to proceed with procedure. Chief complaint: neoplasm screening Narrative: Ok Jeong is a 57 year old male with colon polyp in 2017 Review of Systems Constitutional: Constitutional: Denies headache(s) and Denies weakness Eyes: Eyes: Denies blurry vision ENT: Reports Normal hearing present, Denies headache(s) and Denies neck pain Cardiovascular: Cardiovascular: Denies chest pain and Denies dyspnea Respiratory: Respiratory: Denies dyspnea Gastrointestinal: Gastrointestinal: Reports no additional gastrointestinal complaints Genitourinary: Genitourinary: Denies dysuria Musculoskeletal: Musculoskeletal: Denies neck pain Integumentary/Breasts: Skin/Breast: Denies dry skin Neurologic: Reports Normal hearing present, Denies headache(s) and Denies weakness Psychiatric: Psychiatric: Denies anxiety Endocrine: Endocrine: Denies change in body appearance Hematologic/Lymphatic: Hematologic/Lymphatic: Denies easy bleeding Allergic/Immunologic: Allergic/Immunologic: Denies urticaria PMF Past Medical History Medical History Atrial fibrillation CHF (congestive heart failure) Essential hypertension Gout Joint pain Right knee and left ankle Surgical History Surgical History H/O hand surgery Right pointer finger tendon repair History of cardiac cath (~2019) History of colonoscopy with polypectomy (~03/2017) Family History Family History Mother Family history of thyroid disease Dementia Father Family history of malignant neoplasm of stomach Sibling Asthma Cardiac defibrillator in place Social History Social History Social History: The patient resides with his who is a durable power disability attorney for healthcare. Patient desires to be a full code. The patient has 3 children who are well and healthy. 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 No marijuana or substance abuse he rarely drinks. Smoking status: Never smoker Second hand tobacco smoke exposure: No Alcohol intake: current Alcohol use details: on ocasionally Substance use: never Substance use type: does not use Living arrangements: with family Spiritual care concerns: No Meds Home Medications and Allergies Home Medications Medication Instructions Recorded Confirmed Type digoxin 125 mcg (0.125 mg) tablet 125 mcg PO QAM #30 tabs 05/11/20 05/02/22 Rx lisinopril 5 mg tablet 5 mg PO QAM #30 tabs 05/11/20 05/02/22 Rx rivaroxaban 20 mg tablet (Xarelto) 20 mg PO DAILY@1700 #30 tabs 05/11/20 05/10/22 Rx amiodarone 200 mg tablet 200 mg PO DAILY 03/15/21 05/02/22 History furosemide 20 mg tablet 20 mg PO BID #60 tabs 03/15/21 05/02/22 Rx furosemide 20 mg tablet 40 mg PO DAILY 09/14/21 05/02/22 History metoprolol succinate 200 mg 200 mg PO DAILY 09/14/21 05/02/22 History tablet,extended release 24 hr potassium chloride 10 mEq 10 meq PO DAILY #90 tabs 10/01/21 05/02/22 Rx tablet,extended release Allergies Allergy/AdvReac Type Severity Reaction Status Date / Time No Known Allergies Allergy Unknown Verified 05/10/22 07:34 Vital Signs Vital Signs - 24 hr 05/10/22 07:36 Temperature 97.1 F L Pulse Rate 82 Respiratory Rate 19 Blood Pressure 141/109 H Pulse Oximetry 98 Oxygen Delivery Room Air Exam Const: General: comfortable and no acute distress HENMT: Face/Nose/Sinus: Normal nares present Eyes: General: appearance normal, both eyes and all related structures Neck: Neck: no JVD Resp: Auscultation: clear to auscultation bilaterally Cardio: Rate: regular rate Rhythm: regular rhythm GI: Inspection:
[2022-05-10 08:20] VITALS: BP 121/73; PULSE 67; RESP 20; O2SAT 98
[2022-05-10 08:30] VITALS: BP 141/109; PULSE 82; RESP 19; O2SAT 98
[2022-05-10 08:40] VITALS: BP 141/109; PULSE 82; RESP 19; O2SAT 98
== END 2022-05-10 08:45 | disposition home or self-care (01) ==
PROVIDERS: PCP Family Medicine; Visit Provider Internal Medicine Gastroenterology
PROC: 0DJD8ZZ Inspection of Lower Intestinal Tract, Via Natural or Artificial Opening Endoscopic (ICD-10-PCS; CPT 45378; principal; 2022-05-10 08:30)
DX: Z12.11 Encounter for screening for malignant neoplasm of colon (principal); K57.30 Diverticulosis of large intestine without perforation or abscess without bleeding; K64.8 Other hemorrhoids; Z86.010 Personal history of colon polyps; I48.91 Unspecified atrial fibrillation; I11.0 Hypertensive heart disease with heart failure; I50.9 Heart failure, unspecified; E66.01 Morbid (severe) obesity due to excess calories; Z68.41 Body mass index [BMI] 40.0-44.9, adult; Z79.01 Long term (current) use of anticoagulants
CPT/HCPCS: 45378; J2704; J7120

== ENCOUNTER 2022-09-23 12:41 | Outpatient (CLI) | payer BC, SELFPAY ==
[2022-09-23 20:11] LABS: Alanine Aminotransferase 24 U/L (6-50); Albumin Level 4.5 g/dL (3.5-5.1); Alkaline Phosphatase 48 U/L (38-126); Anion Gap 9 mmol/L (8-16); Aspartate Amino Transferase 26 U/L (17-59); Bilirubin,Total 0.7 mg/dL (0.2-1.3); Blood Urea Nitrogen 18 mg/dL (9-20); Calcium 9.1 mg/dL (8.4-10.2); Carbon Dioxide 30 mmol/L (22-30); Chloride 109 mmol/L (98-107); Cholesterol 164 mg/dL (0-200); Estimated Glomerular Filt Rate 52; Glucose 96 mg/dL (65-110); HDL Direct 29 mg/dL; Potassium 4.6 mmol/L (3.4-5.0); Sodium 148 mmol/L (137-145); Triglycerides 196 mg/dL (<150)
[2022-09-23 20:22] LABS: LDL Cholesterol Direct 86 mg/dL
[2022-09-23 21:08] LABS: Basophils Absolute Auto 0.1 K/mm3 (0.0-0.1); Basophils Percent Auto 1.3 % (0.2-1.2); Eosinophils Absolute Auto 0.1 K/mm3 (0-0.3); Hematocrit 47.6 % (42.0-52.0); Hemoglobin 15.3 g/dL (14.0-18.0); Immature Granulocyte Absolute 0.01 K/mm3 (0.00-0.031); Immature Granulocyte Percent A 0.2 % (0-0.5); Lymphocytes Absolute Auto 1.62 K/mm3 (0.9-3.2); Lymphocytes Percent Auto 26.7 % (18.3-44.2); Mean Corpuscular HGB Conc 32.1 g/dl (32-36); Mean Corpuscular Hemoglobin 28.1 pg (26-34); Mean Corpuscular Volume 87.5 fl (80-100); Mean Platelet Volume 10.1 fl (7.4-10.4); Monocytes Absolute Auto 0.6 K/mm3 (0.1-0.6); Monocytes Percent Auto 9.7 % (2.6-8.5); Neutrophils Absolute Auto 3.6 K/mm3 (1.3-6.7); Neutrophils Percent Auto 60.1 % (45.5-73.1); Platelet Count Result 212 k/mm3 (150-375); Red Blood Count 5.44 M/mm3 (4.6-6.20); Red Cell Distribution Width 13.7 % (11.5-14.5); White Blood Count 6.1 K/mm3 (4.5-10.0)
== END 2022-09-23 12:42 | disposition home or self-care (01) ==
LOC: ANHGOSHLAB 12:42
PROVIDERS: PCP Family Medicine; Visit Provider Nurse Practitioner Family
DX: E78.5 Hyperlipidemia, unspecified (principal); I10 Essential (primary) hypertension
CPT/HCPCS: 36415; 80053; 80061; 85025

== ENCOUNTER 2023-03-24 08:43 | Outpatient (CLI) | payer BC, SELFPAY ==
[2023-03-24 18:38] LABS: Alanine Aminotransferase 20 U/L (6-50); Albumin Level 3.8 g/dL (3.5-5.1); Alkaline Phosphatase 41 U/L (38-126); Anion Gap 5 mmol/L (8-16); Aspartate Amino Transferase 35 U/L (17-59); Bilirubin,Total 0.6 mg/dL (0.2-1.3); Blood Urea Nitrogen 24 mg/dL (9-20); Calcium 8.1 mg/dL (8.4-10.2); Carbon Dioxide 29 mmol/L (22-30); Chloride 105 mmol/L (98-107); Cholesterol 151 mg/dL (0-200); Estimated Glomerular Filt Rate 52; Glucose 94 mg/dL (65-110); HDL Direct 28 mg/dL; Magnesium 2.4 mg/dL (1.6-2.3); Sodium 139 mmol/L (137-145); Triglycerides 183 mg/dL (<150)
[2023-03-24 18:46] LABS: LDL Cholesterol Direct 82 mg/dL
[2023-03-24 19:53] LABS: Basophils Absolute Auto 0.1 K/mm3 (0.0-0.1); Basophils Percent Auto 0.9 % (0.2-1.2); Eosinophils Absolute Auto 0.2 K/mm3 (0-0.3); Eosinophils Percent Auto 2.5 % (0-4.4); Hematocrit 45.7 % (42.0-52.0); Hemoglobin 14.8 g/dL (14.0-18.0); Immature Granulocyte Absolute 0.02 K/mm3 (0.00-0.031); Immature Granulocyte Percent A 0.3 % (0-0.5); Lymphocytes Absolute Auto 1.61 K/mm3 (0.9-3.2); Mean Corpuscular HGB Conc 32.4 g/dl (32-36); Mean Corpuscular Hemoglobin 28.5 pg (26-34); Mean Corpuscular Volume 87.9 fl (80-100); Mean Platelet Volume 10.1 fl (7.4-10.4); Monocytes Absolute Auto 0.7 K/mm3 (0.1-0.6); Monocytes Percent Auto 9.8 % (2.6-8.5); Neutrophils Absolute Auto 4.2 K/mm3 (1.3-6.7); Neutrophils Percent Auto 62.5 % (45.5-73.1); Platelet Count Result 208 k/mm3 (150-375); White Blood Count 6.7 K/mm3 (4.5-10.0)
[2023-03-26 21:16] LABS: PSA, Free 0.48 ng/mL; PSA, Total 1.7 ng/mL (<=4.0)
[2023-03-27 07:09] LABS: Vitamin D 1,25 (OH)2 Total 25 pg/mL (18-72); Vitamin D2 1,25 (OH)2 <8 pg/mL; Vitamin D3 1,25 (OH)2 25 pg/mL
== END 2023-03-24 08:44 | disposition home or self-care (01) ==
LOC: ANHGOSHLAB 08:45
PROVIDERS: PCP Family Medicine; Visit Provider Nurse Practitioner Family
DX: I50.9 Heart failure, unspecified (principal); Z12.5 Encounter for screening for malignant neoplasm of prostate; E55.9 Vitamin D deficiency, unspecified
CPT/HCPCS: 36415; 80053; 80061; 82652; 83735; 84153; 84154; 85025

== ENCOUNTER 2023-09-15 12:48 | Outpatient (CLI) | payer BC, SELFPAY ==
--- NOTE | 2023-09-15 15:30 | WPDPFTINT ---
PFT Procedure Performed PFT Procedure Performed Spirometry with Pre/Post Bronchodilator Plethysmography (Lung Vol) Diffusing Cap (DLCO) Flow Vol Loop Spirometry w/o Bronchodil PFT Interpretation This is a pulmonary function test with spirometry, plethysmography and diffusing capacity. The test was performed and results interpreted in accordance with the 2019 and 2005 ATS/ERS Task Force guidelines respectively using the Global Lung Function Initiative-2012 reference equations. Patient demonstrated good effort and cooperation. Reproducibility criteria were met. The quality of the spirometry maneuver was Grade B. Findings: Spirometry: the contour the inspiratory and expiratory flow tracing are normal. The FVC is 6.44 L, 114% predicted. The FEV1 is 5.26 L, 121% predicted. The FEV1: FVC ratio was 82%. Plethysmography: The total lung capacity is 8.54 L, 106% predicted. The functional residual capacity is 3.45 L, 81 % predicted. The residual volume is 2.04 L, 83% predicted. Diffusing capacity: The diffusing capacity unadjusted for hemoglobin and carboxyhemoglobin is 32.8, 105% predicted. The diffusing capacity adjusted for alveolar volume is 4.03, 99% predicted. Impression: The spirometry is normal without evidence of an obstructive abnormality. The lung volumes are normal. The diffusing capacity is normal. There are no prior studies for comparison
== END 2023-09-15 12:49 | disposition home or self-care (01) ==
PROVIDERS: PCP Family Medicine; Visit Provider Specialist
DX: I42.9 Cardiomyopathy, unspecified (principal); I48.91 Unspecified atrial fibrillation
CPT/HCPCS: 94375; 94726; 94729

== ENCOUNTER 2023-09-19 08:39 | Outpatient (CLI) | payer BC, SELFPAY ==
[2023-09-19 14:18] LABS: Kit Draw Collected
== END 2023-09-19 08:40 | disposition home or self-care (01) ==
LOC: ANHGOSHLAB 08:40
PROVIDERS: PCP Family Medicine; Visit Provider Nurse Practitioner Family
DX: Z00.00 Encounter for general adult medical examination without abnormal findings (principal); E55.9 Vitamin D deficiency, unspecified; I10 Essential (primary) hypertension; Z79.899 Other long term (current) drug therapy
CPT/HCPCS: 36415

== ENCOUNTER 2024-09-06 09:52 | Outpatient (CLI) | payer BC, SELFPAY ==
--- OUTSIDE RECORDS SUMMARY | 2024-09-06 11:23 | XMS_ITS | Continuity of Care Document ---
Author Organization [facility] Address [address] [place] [address] Phone Care Team Providers Care Buncher Hand Name Role Phone Conversion MD, Doctor Unavailable Unavailabl e Allergies, Adverse Reactions, Alerts Substance Reaction Status Criticality No Known Drug Allergies Other Active No I nformation Medications Medication Instructions Dosage Effective Dates (start - stop) Status Comments ZITHROMAX TAB 6 X 250 MG Z-PRIMITIVO 1 DIRECTE - Active PREVACID [address] 1 QD-daily - Active GEMFIBROZIL 600MG TABS 1 BID - Active DECONAMINE SR 120-8MG CAPS 1 BID - Active TYLENOL SINUS 30-500-6.2 TABS 1 Q 6-8HR - Active PREVACID [address] 1 QD-daily - No Longer Active PREVACID [address] 1 QD-daily - No Longer Active ENTEX PSE 400-120MG CAPS 1 BID - No Longer Active AMOXICILLIN 500MG CAPS 1 TID - No Longer Active AMOXICILLIN 500MG CAPS 1 TID - No Longer Active PREVACID 30MG CAPS 1 QD No Longer Active Advance Directives Directive Yes / No Effective Date File Name No Information Encounters Encounter Description Practice Location Reason(s) For Visit Diagnoses Date Provider Providers Copied on Encounter [facility], [address], [place], [place], [address] , tel: [phone] Conversion Department No Information 0 6-201 1 Conversion Doctor. [facility] [place], [address], [place]. [facility], [address], [place], [place], [address] , tel: [phone] [facility] CALCULUS OF KIDNEY 3200 6 No Information [facility], [address], [place], [place], [address] , [place] tel: [phone] [facility] ACUTE URI NOS 7-200 6 Conversion Doctor. [facility] [place], [address], [place]. [facility], [address], [place], [place], [address] , tel: [phone] [facility] ALLERGIC RHINITIS NOS 3-200 6 [address] [place], [place], [place], [address], [place]. tel:[phone] [facility], [address], [place], [place], [address] , [place] tel: [phone] [facility] SKIN HYPERTRO/ATROPH NOSROUTINE MEDICAL EXAMHYPERLIPIDEM IA NEC/NOSABNORMAL WEIGHT GAIN 3-200 6 No Information [facility], [address], [place], [place], [address] , [place] tel: [phone] [facility] No Information 2-200 6 [address] [place], [address], [place], [place], [address], [place]. tel:[phone] [facility], [address], [place], [place], [address] , [place] tel: [phone] [facility] ACUTE PHARYNGITIS 0 1-200 4 Conversion Doctor. [facility] [place], [address], [place]. [facility], [address], [place], [place], [address] , tel: [phone] [facility] FASCIITIS NOSESOPHAGEAL REFLUX 6-200 4 No Information Family History Family Member Type Diagnosis Age At Onset No Information Payers Payer name Insurance type Covered alliance party ID Authoriza tion(s) No Information Social History Type Description Quantity Date Captured Comments Sex Male Smoking Status No Information Chief Complaint And Reason For Visit No Information Reason For Referral Reason For Referral No Information History Of Present Illness Encounter Date Complaint History Of Prese nt Illness No Information Functional Status Date Functional Assessmen t No Information Medications Administered Medication Instructions Dosage Effective Dates (start - stop) Status Comments PREVACID [address] 1 QD-daily - No Longer Active Instructions Date Instruction Additional Infor mation No Information Assessments Type Assessment Date No Information Patient Care Teams Name Effective Dates (start - stop) Status Members No Information
--- OUTSIDE RECORDS SUMMARY | 2024-09-06 11:23 | XMS_ITS | Clinical Summary ---
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 Gender Identity Not on file Sexual Orientation Not on file Plan of Treatment Health Maintenance Due Date Last Done Comments Hepatitis C Virus (HCV) Screening 1966 Hepatitis B Immunization (1 of 3 - 19+ 3-dose series) 1985 Colonoscopy 2011 Colorectal Cancer Screening 2011 Cologuard 2016 Immunochemical Fecal Occult Blood 2016 Pneumococcal Immunization (5 0+ years) (1 of 1 - PCV) 2016 Zoster Immunization (1 of 2) 2016 PSA Discussion 2021 Influenza Immunization (#1) 2024 SARS-COV-2 Immunization ( season) 2024 06/02/2021, 09/28/2020, 09/07/2020 Respiratory Syncytial Virus (RSV) Immunization (Adult) (1 - 1-dose 75+ series) 2041 DTaP/Tdap/Td Immunization Discontinued 04/07/2016 TdaP Immunization Completed 04/07/2016 Meningococcal Immunization (ACWY) Aged Out No longer eligible based on patient's age to complete this topic Pneumococcal Immunization Combined Aged Out No longer eligible based on patient's age to complete this topic Rotavirus Immunization Aged Out No lo nger eligible based on patient's age to complete this topic
[2024-09-07 07:22] LABS: Kit Draw Collected
== END 2024-09-06 09:53 | disposition home or self-care (01) ==
LOC: ANHGOSHLAB 09:53
PROVIDERS: PCP Family Medicine; Visit Provider Family Medicine
DX: E55.9 Vitamin D deficiency, unspecified (principal); Z12.5 Encounter for screening for malignant neoplasm of prostate; E78.5 Hyperlipidemia, unspecified; I10 Essential (primary) hypertension
CPT/HCPCS: 36415

== ENCOUNTER 2024-11-04 14:05 | Outpatient (CLI) | payer BC, SELFPAY ==
--- NOTE | ~2024-11-04 | US_ITS ---
EXAMINATION:US venous doppler LE RT INDICATION:Right leg pain TECHNIQUE: Multiple grayscale, color flow and Doppler images of the right lower extremity deep venous systems were obtained and reviewed. COMPARISON:No prior studies for comparison. FINDINGS: The common femoral, superficial femoral and popliteal veins demonstrate normal respiratory variation, augmentation and compressibility. Color flow is also seen within the posterior tibial, pe roneal, greater saphenous and profunda veins. IMPRESSION: 1: No lower extremity deep venous thrombosis. Reviewed, dictated and finalized at location A.
--- OUTSIDE RECORDS SUMMARY | 2024-11-04 14:11 | XMS_ITS | Clinical Summary ---
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
--- OUTSIDE RECORDS SUMMARY | 2024-11-04 14:11 | XMS_ITS | Data Portability ---
Author Organization [place] - [facility] OFFICE Address [address] [place] [address] Care Team Providers Care Car Mover Name Role Phone KARLA JUNG Primary Care Provider KARLA JUNG Referring Provider Assessment Encounter Date Assessment Date Assessment LastModified by Organization Details LastModified Time 01/28/2023 01/28/2023 Patient Examined by TRESSA Choudhary, Also Documentation reviewed and approved by supervising physician bettie Not available 01/28/2023 09:40:55 08/28/2023 08/28/2023 Patient Examined by TRESSA Choudhary, Also Documentation reviewed and approved by supervising physician eda Not available 08/26/2023 12:31:46 Plan of Treatment Reminders Order Date Submit Date Provider Last Modified By Organization Details Last Modified Time Details Appointments ESTABLISH ED PATIENT DETAILED 2024 08:45A M Danis Salazar i, MD Not available Not available Not available Lab None recorded. Referral None recorded. Procedures None recorded. Surgeries None recorded. Imaging None recorded. Medication Orders amiodaron e 200 mg tablet 2023 024 [facility] [address] [place], [address], 08/28/2023 10:13:15 digoxin 125 mcg (0.125 mg) tablet 2023 024 [facility] [address] [place], [address], 08/28/2023 10:13:12 furosemid e 20 mg tablet 2023 024 [facility] [address] [place], [address], 08/28/2023 10:13:09 metoprolo l succinate ER 200 mg tablet,ex tended release 24 hr [address] [facility] [address] [place], [address], 08/28/2023 10:34:09 potassium chloride ER 10 mEq tablet,ex tended release 2023 024 [facility] [address] [place], [address], 08/28/2023 10:42:38 Xarelto 20 mg tablet 2023 024 [facility] [address] [place], [address], 08/28/2023 10:13:11 lisinopri l 10 mg tablet [address] [facility] [address] [place], [address], 08/28/2023 10:13:12 Xarelto 20 mg tablet [address] [facility] [address] [place], [address], 01/28/2023 09:45:55 metoprolo l succinate ER 200 mg tablet,ex tended release 24 hr [address] [facility] [address] [place], [address], 01/28/2023 09:45:56 Patient TargetsNo targets recorded. Patient Instructions Encounter Date Encounter Id Patient Instructions Last Modified By Organization Details Last Modified Time 09/17/2022 [id number] Weight loss 20 pounds Exercise advised Low cholesterol diet advised Low sodium diet advised. [email or web address] Not available 09/17/2022 17:04:42 01/28/2023 [id number] Exercise advised Low cholesterol diet advised Low sodium diet advised. [email or web address] Not available 01/28/2023 09:45:31 02/26/2024 [id number] Weight loss 20 pounds Exercise advised Low cholesterol diet advised Low sodium diet advised. [email or web address] Not available 02/26/2024 20:37:30 Reason for Referral None Reported. Results Created Date Observation Date Name Description Value Unit Range Abnormal Flag Note LastModifiedBy Organization Detail LastModifiedTime 09/03/19 24 08/28/2023 elect ondinaar diogr am No observ ation record ed. [email or web address] Not Available 2023 10:15:45 09/23/19 24 09/15/2023 pulmo nary funct ion test proce dure (PROC ) No observ ation record ed. [email or web address] Not Available 2024 08:23:37 09/21/1909/14/2024 , echoc ardio gram No observ ation record ed. [email or web address] [facility] [address], [place], [address], 09/20/2024 11:16:48 Result Notes None recorded. Problems Name Problem SNOMED Code Status Onset Date Resolution Date Notes Provider Name and Address Organization Details Recorded Time Edema of lower extremity 117566637 Active 2023 Nikki sahni, [place] - [facility] 4 12:34:01 Atrial fibrillati on 09294516 Active 2019 Nikki Schreiber null, [place] - [facility] 2 16:25:20 Congestive heart failure 97733329 Active 2019 Nikki Schre[place] - [facility] 2 16:25:23 Morbid obesity 626671832 Active 2019 Nik[place] Schre[place] [facility] 2 16:25:36 Hyperlipid emia 61981803 Active 2019 Nikki Schre[place] [facility] 2 16:25:25 Pain of joint 65680383 Active 2019 PRECIOUS GARRETT null, [place] - [facility] 0 10:26:13 Sleep apnea 76325805 Active 2019 [facility] [place] 2 16:25:31 Cardiomyop athy 79806446 Active 2019 Nikki sahni, [facility] 2 16:25:17 Problem Notes None recorded. Procedures Surgical History None recorded. Imaging Results Imaging Date Name Status LastModified by Organization Details LastModified Time 08/28/2023 electrocardiogram completed [email or web address] Informa tion not available 09/03/2023 10:15:45 09/15/2023 pulmonary function test procedure (PROC) completed [email or web address] Information not available 08/31/2024 08:23:37 09/14/2024 US, echocardiogram completed [email or web address] [facility] [place] [id number], [place], [address], 09/20/2024 11:16:48 Procedure Notes None recorded. Medical Equipment None Reported. Allergies No known drug allergies Medications Name Sig Start Date Stop Date Status Note LastModified by Organization Details LastModified Time furosemide 40 mg tablet Take 1 tablet every day by oral route. 06/05 completed Not Available Not Available Not Available azithromyci n 250 mg tablet 05/22 completed Not Available Not Available Not Available amiodarone 200 mg tablet TAKE 1 TABLET BY MOUTH ONCE DAILY active Not Available Not Available No t Available metoprolol succinate ER 50 mg tablet,exte nded release 24 hr TAKE 1 TABLET BY MOUTH ONCE DAILY 06/05 completed Not Available Not Available Not Available hydrocodone 5 mg-acetamin ophen 325 mg tablet Take 1 tablet every 6 hours by oral route. 05/22 completed Not Available Not Available Not Available metoprolol succinate ER 200 mg tablet,exte nded release 24 hr TAKE 1 TABLET BY MOUTH ONCE DAILY active Not Available Not Available No t Available potassium chloride ER 10 mEq tablet,exte nded release TAKE 1 TABLET BY MOUTH ONCE DAILY active Not Available Not Available No t Available tamsulosin 0.4 mg capsule TAKE 1 CAPSULE BY MOUTH EVERY DAY AT BEDTIME active Not Available Not Available No t Available lisinopril 10 mg tablet Take 1 tablet(s) every day by oral route. 2024 active Not Available Not Available Not Avai lable metoprolol tartrate 50 mg tablet Take 1 tablet twice a day by oral route. 06/05 completed Not Available Not Available Not Available lisinopril 5 mg tablet TAKE 1 TABLET BY MOUTH ONCE DAILY 02/25 completed Not Available Not Available Not Available digoxin 125 mcg (0.125 mg) tablet TAKE 1 TABLET BY MOUTH ONCE DAILY active Not Available Not Available No t Available furosemide 20 mg tablet TAKE 2 TABLETS BY MOUTH IN THE MORNING AND 1 TABLET IN THE EVENING active Not Available Not Available No t Available methylpredn isolone 4 mg tablets in a dose pack TAKE BY MOUTH DIRECTED ON INSIDE OF PACKAGE 02/25 completed Not Available Not Available Not Available albuterol sulfate HFA 90 mcg/actuati on aerosol inhaler INHALE 1 PUFF BY MOUTH EVERY 4 HOURS NEEDED FOR SHORTNESS OF BREATH OR WHEEZING 12/04 completed Not Available Not Available Not Available ondansetron 4 mg disintegrat ing tablet Place 2 tablets twice a day by transling ual route. 05/22 completed Not Available Not Available Not Available amoxicillin 875 mg-potassiu m clavulanate 125 mg tablet TAKE 1 TABLET BY MOUTH TWICE DAILY 02/25 completed Not Available Not Available Not Available Xarelto 20 mg tablet TAKE 1 TABLET BY MOUTH ONCE DAILY active Not Available Not Available No t Available acetaminoph en 325 mg capsule Take by oral route. 05/22 completed Not Available Not Available Not Available Vitals Date Recorded Body height Body mass index (BMI) Body weight Heart rate Respiratory rate Oxygen saturation Oxygen saturation in Arterial blood by Pulse oximetry Systolic blood pressure Diastolic blood pressure Provider Name and Address Organization Details Last Updated DateTime 3 190.5 cm 45.5 kg/m2 267220. 62 g 68 /min 16 /min 99 % 99 % 128 mm[Hg] 72 mm[Hg] Marcos TYLER - [facility] 3 16:54:05 Date Recorded Body height Body mass index (BMI) Body weight Heart rate Respiratory rate Oxygen saturation Oxygen saturation in Arterial blood by Pulse oximetry Systolic blood pressure Diastolic blood pressure Provider Name and Address Organization Details Last Updated DateTime 3 190.5 cm 44.5 kg/m2 057487. 88 g 83 /min 16 /min 97 % 97 % 122 mm[Hg] 74 mm[Hg] Marcos Hardy [facility] 3 08:58:38 Date Recorded Body height Body mass index (BMI) Body weight Heart rate Respiratory rate Oxygen saturation Oxygen saturation in Arterial blood by Pulse oximetry Systolic blood pressure Diastolic blood pressure Provider Name and Address Organization Details Last Updated DateTime 4 190.5 cm 44.1 kg/m2 372674. 11 g 82 /min 18 /min 95 % 95 % 162 mm[Hg] 88 mm[Hg] Marcos Hardy [facility] 4 09:58:22 Date Recorded Body height Body mass index (BMI) Body weight Heart rate Oxygen saturation Oxygen saturation in Arterial blood by Pulse oximetry Systolic blood pressure Diastolic blood pressure Provider Name and Address Organization Details Last Updated DateTime 4 190.5 cm 45.4 kg/m2 864195. 03 g 77 /min 97 % 97 % 130 mm[Hg] 70 mm[Hg] Rhonda William [facility] 4 20:25:49 Date Recorded Body height Body mass index (BMI) Body weight Heart rate Respiratory rate Oxygen saturation Oxygen saturation in Arterial blood by Pulse oximetry Systolic blood pressure Diastolic blood pressure Provider Name and Address Organization Details Last Updated DateTime 5 190.5 cm 45.2 kg/m2 546104. 44 g 72 /min 16 /min 96 % 96 % 128 mm[Hg] 74 mm[Hg] Marcos Hardy [facility] 5 09:02:49 Social History Question Answer Notes LastModified by [employer] Details LastModified Time Tobacco Smoking Status Never Smoker PRECIOUS sahni [facility] 05/22/2020 10:28:39 What Is Your Level Of Alcohol Consumption? Occasional 1 Drink/wk [facility]2 Information not available 05/22/2020 What Is Your Level Of Caffeine Consumption? Moderate 2 Cups Coffee [place] Information not available 05/22/2020 What Type Of Diet Are You Following? REGULAR [facility] Information not available 05/22/2020 Which Illicit Or Recreational Drugs Have You Used? Denies [place] Information not available 05/22/2020 Do You Or Have You Ever Used E-cigarettes Or Vape? 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 With Others Information not available 05/22/2020 Marital Status Informatio n not available 05/22/2020 What Was The Date Of Your Most Recent Tobacco Screening? 05/22/2020 Information not available 06/02/2020 How Many Children Do You Have? 3 Information not available 05/22/2020 Do You Or Have You Ever Used Smokeless Tobacco? Never Used Smokeless Tobacco Information not available 06/02/2020 How Much Tobacco Do You Smoke? No Information not available 06/02/2020 How Many Years Have You Smoked Tobacco? 0 Information not available 06/02/2020 Sex: Unknown Functional Status None recorded. Mental Status None recorded. Family History Relationship Description Onset Age of this Age Resolved Age Notes LastModified by Organization Details LastModified Time Mother Dementia Not available 05/22/2020 10:27:27 Mother Disorder of thyroid gland Not available 2019 10:28:27 Unspecified Relation Asthma siblin g Not available 05/22/2020 10:27:44 Father Malignant tumor of stomach Not available 2019 10:28:15 Brother Cardiac defibrillato r in situ Not available 2019 15:59:33 Medical History Condition Response Cardiomyopathy Y Hyperlipidemia Y Atrial Fibrillation Y Congenital Heart Disease Y Sleep Apnea Y Past Encounters Encounter ID Performer Location Encounter Start Date Encounter Closed Date Diagnosis/Indication Diagnosis SNOMED-CT Code Diagnosis ICD10 Code Diagnosis Note [id number] Chandler Murillo MD [place] [facility] [address] [place] [address] 05/22/2020 15:51:16 05/22/2020 19:41:15 Follow-up visit [id number] Z09 Cardiomyopathy 29420459 I42.9 non ischemic per cathPossib ly tachy induced due to A fib. Other etiology if viral myocarditi s.I instructed patient to repeat COVID testing as he developed loss of smellIf negative he may benefit from restoring sinus rhythm with cardiovers ion. His wishes to have that done at [facility].F or now will switch Metoprolol to XL. He is on 50 TID. WIll switch to 200 mg daily Metoprolol succinateC heck Dig level before next visitWell compensate d from volume standpoint on current dose of lasix Atrial fibrillation 4943 6004 I48.91 Switch Metoprolol to XLContinue Digoxin. Check levelsCont inue Xarelto Morbid obesity 723260548 E66.01 [facility]. [id number] Danis Hinson MD [place] [facility] [place] [address] 06/05/2020 15:55:35 06/06/2020 13:39:27 Cardiomyopathy 25770542 I42.9 nonischemi c, [facility] 05/10/2020 showed no significan t CADPossibl y tachy induced due to AFib. Other etiology could be viral myocarditi s.I instructed patient to repeat COVID testing as he developed loss of smell For now, continue 200mg metoprolol XL and 125mcg of digoxin, and add amiodarone 200mg daily. Consider cardiovers ion if rate control does not improve. Check dig level before next visitWell compensate d from volume standpoint on current dose of lasix Atrial fibrillation 4943 6004 I48.91 [id number] Sc score = 2Fair rate control with Digoxin and metoprolol Will start amiodarone 200mg daily 06/05/2020 on XareltoRem ains asymptomat ic Morbid obesity 968228582 E66.01 Sleep study scheduled for June120lb weight loss recommende d over the next 2 months [id number] Salo Jeffers MD [place] [facility] [place] [address] 07/21/2020 12:40:16 07/21/2020 13:40:17 Cardiomyopathy 76653796 I42.9 nonischemi c, [facility] 05/10/2020 showed no significan t CAD For now, continue 200mg metoprolol XL and 125mcg of digoxin, and amiodarone 200mg daily. Consider cardiovers ion IF he comes symptomati c OR becomes poorly rate controlled Follow-up in 1 month with repeat echo same dayWell compensate d from volume standpoint on current dose of Lasix Atrial fibrillation 4943 6004 I48.91 [id number] Sc score = 2Rate controlled with digoxin, metoprolol , and amiodarone 200mg dailyon Xarelto 20mg dailyRemai ns asymptomat ic Morbid obesity 324852448 E66.01 Sleep study obtained, pending results.20 lb weight loss recommende d over the next 2 months [id number] Danis Hinson MD [place] [facility] [address] [place] [address] 08/29/2020 12:46:37 08/29/2020 14:03:39 Cardiomyopathy 92382412 I42.9 nonischemi c, [facility] 05/10/2020 showed no significan t CAD For now, continue 200mg metoprolol XL and 125mcg of digoxin, and amiodarone 200mg daily. Consider cardiovers ion IF he comes symptomati c OR becomes poorly rate controlled ECHO 08/22/20:L V chamber is mildly dilated,LV wall thickness is mildly increased, LV systolic function is moderately reduced,th e estimated LVEF is 35-40%(abn ormal),RV size is mildly dilated,le ft atrium chamber is mildly dilated,ri ght atrium chamber is mildly dilated,th ere is mild thickening of the mitral valve anterior leaflet,th ere is trace mitral regurgitat ion,there is mild tricuspid regurgitat ion. Improved. Okay to D/C LifeVest Atrial fibrillation 4943 6004 I48.91 [id number] Sc score = 2Rate controlled with digoxin, metoprolol , and amiodarone 200mg dailyon Xarelto 20mg dailyRemai ns asymptomat ic Morbid obesity 889876085 E66.01 Sleep study done at [place]: Positive for sleep apnea, central. Pt instructed to follow up with primary, who ordered testing, for follow up. 20lb weight loss recommende d over the next 2 months Obstructiv e sleep apnea syndrome 05153672 G47.33 Sleep study done at [place]: Positive for sleep apnea, central. Pt instructed to follow up with primary, who ordered testing, for follow up. Pt would likely benefit from CPAP [id number] Chandler Murillo MD [place] [facility] [address] [place] [address] 12/04/2020 15:59:45 12/04/2020 16:18:16 Cardiomyopathy 29249919 I42.9 nonischemi c, [facility] 05/10/2020 showed no significan t CAD. For now, continue 200 mg metoprolol XL and 125 mcg of digoxin, and amiodarone 200 mg daily. Consider cardiovers ion IF he comes symptomati c OR becomes poorly rate controlled Echo 08/22/2020 : LV chamber is mildly dilated. LV wall thickness is mildly increased. LV systolic function is moderately reduced. The estimated LVEF is 35-40% (abnormal) . RV size is mildly dilated. Left atrium chamber is mildly dilated. Right atrium chamber is mildly dilated. There is mild thickening of the mitral valve anterior leaflet. There is trace mitral regurgitat ion. There is mild tricuspid regurgitat ion. Continue ABHIJIT-I, BB, and Lasix Atrial fibrillation 4943 6004 I48.91 [id number] Sc score = 2Rate controlled with digoxin, metoprolol , and amiodarone as aboveon Xarelto 20 mg dailyRemai ns asymptomat ic Morbid obesity 956579679 E66.01 Down 19 lbs from last visit Additional 20 lb weight loss recommende d over the next 2 months Obstructiv e sleep apnea syndrome 26151013 G47.33 Awaiting CPAP delivery [id number] Danis Hinson MD [place] [facility] [place] [address] 2021 17:28:23 2021 18:23:42 Cardiomyopathy 98938816 I42.9 nonischemi c, [facility] 05/10/2020 showed no significan t CAD. For now, continue 200 mg metoprolol XL and 125 mcg of digoxin, and amiodarone 200 mg daily. Consider cardiovers ion IF he comes symptomati c OR becomes poorly rate controlled Echo 08/22/2020 : LV chamber is mildly dilated. LV wall thickness is mildly increased. LV systolic function is moderately reduced. The estimated LVEF is 35-40% (abnormal) . RV size is mildly dilated. Left atrium chamber is mildly dilated. Right atrium chamber is mildly dilated. There is mild thickening of the mitral valve anterior leaflet. There is trace mitral regurgitat ion. There is mild tricuspid regurgitat ion. Continue ABHIJIT-I, BB, and Lasix Atrial fibrillation 4943 6004 I48.91 [id number] Sc score = 2Rate controlled with digoxin, metoprolol , and amiodarone as aboveon Xarelto 20 mg dailyRemai ns asymptomat ic Morbid obesity 109666200 E66.01 Additional 20 lb weight loss recommende d over the next 2 months Obstructiv e sleep apnea syndrome 36778567 G47.33 now has CPAP [id number] Danis Hinson MD [place] [facility] [address] [place] [address] 06/12/2021 16:33:44 06/12/2021 17:35:34 Cardiomyopathy 61326601 I42.9 Echo is normal with EF 55% nonischemi c, [facility] 05/10/2020 showed no significan t CAD. For now, continue 200 mg metoprolol XL and 125 mcg of digoxin, and amiodarone 200 mg daily. Consider cardiovers ion IF he comes symptomati c OR becomes poorly rate controlled Atrial fibrillation 4943 6004 I48.91 [id number] Sc score = 2Rate controlled with digoxin, metoprolol , and amiodarone as aboveon Xarelto 20 mg dailyRemai ns asymptomat icconsider cardiovers ion. Morbid obesity 026751663 E66.01 Additional 20 lb weight loss recommende d over the next 2 months Obstructiv e sleep apnea syndrome 82177808 G47.33 now has CPAP [id number] Danis Hinson MD [place] [facility] [address] [place] [address] 09/11/2021 16:50:20 09/11/2021 17:28:36 Cardiomyopathy 00569281 I42.9 Echo is normal with EF 55% nonischemi c, [facility] 05/10/2020 showed no significan t CAD. For now, continue 200 mg metoprolol XL and 125 mcg of digoxin, and amiodarone 200 mg daily. Consider cardiovers ion IF he comes symptomati c OR becomes poorly rate controlled Atrial fibrillation 4943 6004 I48.91 [id number] Sc score = 2Rate controlled with digoxin, metoprolol , and amiodarone as aboveon Xarelto 20 mg dailyRemai ns asymptomat icconsider cardiovers ion. Morbid obesity 890179740 E66.01 Additional 20 lb weight loss recommende d over the next 2 months Obstructiv e sleep apnea syndrome 40033251 G47.33 now has CPAP [id number] Danis Hinson MD [place] [facility] [address] [place] [address] 12/18/2021 15:39:07 12/18/2021 16:19:35 Cardiomyopathy 92255482 I42.9 Echo is normal with EF 55% nonischemi c, [facility] 05/10/2020 showed no significan t CAD. For now, continue 200 mg metoprolol XL and 125 mcg of digoxin, and amiodarone 200 mg daily. Consider cardiovers ion IF he comes symptomati c OR becomes poorly rate controlled Atrial fibrillation 4943 6004 I48.91 [id number] Sc score = 2Rate controlled with digoxin, metoprolol , and amiodarone as aboveon Xarelto 20 mg dailyRemai ns asymptomat icconsider cardiovers ion. Morbid obesity 408473075 E66.01 Additional 20 lb weight loss recommende d over the next 2 months Obstructiv e sleep apnea syndrome 63455875 G47.33 now has CPAP [id number] Danis Hinson MD [place] [facility] [place] [address] 06/18/2022 15:37:37 06/18/2022 16:14:28 Cardiomyopathy 46258809 I42.9 Echo is normal with EF 55% nonischemi c, [facility] 05/10/2020 showed no significan t CAD. For now, continue 200 mg metoprolol XL and 125 mcg of digoxin, and amiodarone 200 mg daily. Consider cardiovers ion IF he comes symptomati c OR becomes poorly rate controlled Obtain echo to evaluate for structural /functiona l disease. Atrial fibrillation 4943 6004 I48.91 [id number] Sc score = 2Rate controlled with digoxin, metoprolol , and amiodarone as aboveon Xarelto 20 mg dailyRemai ns asymptomat icconsider cardiovers ion. Morbid obesity 755437940 E66.01 Additional 20 lb weight loss recommende d over the next 2 months Obstructiv e sleep apnea syndrome 47607071 G47.33 now has CPAP [id number] Danis Hinson MD [place] [facility] [address] [place] [address] 09/17/2022 16:02:18 09/17/2022 17:08:28 Cardiomyopathy 84887582 I42.9 Echo is normal with EF 55% Atrial fibrillation 4943 6004 I48.91 [id number] Sc score = 2Rate controlled with digoxin, metoprolol , and amiodarone as aboveon Xarelto 20 mg dailyRemai ns asymptomat icconsider cardiovers ion. Morbid obesity 960847460 E66.01 Additional 20 lb weight loss recommende d over the next 2 months Obstructiv e sleep apnea syndrome 04036851 G47.33 now has CPAP [id number] Danis Hinson MD [place] [facility] [place] [address] 01/28/2023 08:51:21 01/28/2023 09:52:13 Cardiomyopathy 97706372 I42.9 Echo is normal with EF 55% Atrial fibrillation 4943 6004 I48.91 [id number] Sc score = 2Rate controlled with digoxin, metoprolol , and amiodarone as aboveon Xarelto 20 mg dailyRemai ns asymptomat icconsider cardiovers ion. Morbid obesity 020659652 E66.01 Additional 20 lb weight loss recommende d over the next 2 months Obstructiv e sleep apnea syndrome 33212710 G47.33 now has CPAP Edema of l ower extremity 432189900 R60.0 stable [id number] Danis Hinson MD [place] [facility] [address] [place] [address] 08/28/2023 09:40:45 08/28/2023 10:19:00 Cardiomyopathy 77347439 I42.9 Echo is normal with EF 55% Atrial fibrillation 4943 6004 I48.91 [id number] Sc score = 2Rate controlled with digoxin, metoprolol , and amiodarone as aboveon Xarelto 20 mg dailyRemai ns asymptomat icconsider cardiovers ion.will check thyroid and PFT Morbid obesity 103202667 E66.01 Additional 20 lb weight loss recommende d over the next 2 months Obstructiv e sleep apnea syndrome 63223146 G47.33 now has CPAP Edema of l ower extremity 082953849 R60.0 stable Essential hypertension 30679123 I10 BP is elevated today 140/100wil l increased his lisinopril to 10 mg [id number] Danis Hinson MD [place] [facility] [address] [place] [address] 02/26/2024 19:30:17 02/26/2024 20:40:11 Cardiomyopathy 93052076 I42.9 Echo is normal with EF 55% Atrial fibrillation 4943 6004 I48.91 [id number] Sc score = 2Rate controlled with digoxin, metoprolol , and amiodarone as aboveon Xarelto 20 mg dailyRemai ns asymptomat icconsider cardiovers ion.will check thyroid. PFT 09/15/23: The spirometry is normal without evidence of an obstructiv e abnormalit y. The lung volumes are normal. The diffusing capacity is normal. There are no prior studies for comparison . Morbid obesity 129747252 E66.01 Additional 20 lb weight loss recommende d over the next 2 months Obstructiv e sleep apnea syndrome [id number] G47.33 now has CPAP Edema of l ower extremity [id number] R60.0 stable Essential hypertension [id number] I10 Now well controlled will increased his lisinopril to 10 mg [id number] Danis Hinson MD [facility] [address] [place] [address] 08/31/2024 08:53:58 08/31/2024 09:34:19 Cardiomyopathy [id number] I42.9 Obtain echo to evaluate for structural /functiona l disease. Atrial fibrillation [id number] I48.91 [id number] Sc score = 2Rate controlled with digoxin, metoprolol , and amiodarone as aboveon Xarelto 20 mg dailyRemai ns asymptomat icconsider cardiovers ion.will check thyroid PFT 09/15/23: The spirometry is normal without evidence of an obstructiv e abnormalit y. The lung volumes are normal. The diffusing capacity is normal. There are no prior studies for comparison . Morbid obesity [id number] E66.01 Additional 20 lb weight loss recommende d over the next 2 months Obstructiv e sleep apnea syndrome [id number] G47.33 now has CPAP Edema of l ower extremity [id number] R60.0 stable Essential hypertension [id number] I10 Now well controlled Health Concerns Section Related Observation LastModified by Organization Detai ls LastModified Time None Recorded Concern Status LastModified by Organization Details LastModified Time None Recorded Advance Directives Directive None Recorded Payers Insurance Date Sequence Insurance Name Policy Number Policy Lou Covered Member ID Lou Member ID Guarantor Name 09/11/2024 1 [facility] ([place] [id number] Guillermina Linton Adenike [id number] [place] Monet Adenike Notes Date Note Type Note Provider Name and Address Organization Details Recorded Time 09/17/2022 text/html 09/17/22CC : Car diac follow [id number] man with h/o nonischemic cardiomyopathy, and paroxysmal AFib, who presents for 3 month follow-up with ECHO results. He was last seen in the clinic on 06/18/22, since then he Had ECHO on 07/03/22 showed LV Chamber size is normal,there is normal global systolic function and contractility, LVEF is 55-60%.He denies ER visits and hospitalizations since he was last seen. Today reports:Denies chest pain.Denies shortness of breath at rest. Has mild dyspnea on exertion.No orthopnea. No PNDs.Denies heart palpitations.Denies dizziness. Denies syncope or near syncope.No ankle or leg edema.No major bleeding events.No reported side effects from medications. Taking medications as prescribed with no missed doses.Denies snoring, daytime somnolence and AM headache, he is on Cpap, but not using it every night .*Last LDL was 66 done on 05/09/20.Pt takes lisinopril 5 mg. *Had ECHO on 07/03/22 showed LV Chamber size is normal,there is normal global systolic function and contractility, LVEF is 55-60%. Previously:05/10/20 LIPID: TC 120, TR 162, HDL 21, LDL 66 The tightness was in the middle of the chest and it was continues. He denied any dyspnea on exertion. *He had a positive stress test but now has CPAP. Results from this visit, or from the past:11/21/20 DIGOXIN 1. CMP GL 85, BUN 20, CR 1.32, NA 141, K 4.5, CHL 102, C02 24, CA 9.0, AP 49, AST 17, ALT :Na 140,K 5.2,Cl 99,CO2 26,GLU 88,BUN 17,Cr 1.43,Mg 2.2.11/13/20 M.511 BMP: NA 139, K 4.1, CL 104, CO2 26, GLU 81, BUN 22, CR 1. CBC: WBC 7.0, HGB 14.9, HCT 45.5, PLT 3756905/10/20 LIPID: TC 120, TR 162, HDL 21, LDL PT/INR: PT 13.4, INR 1.011 EKG: AFib05/08/20 EKG: Atrial fibrillation with rapid ventricular response. Ventricular premature complexes. Nonspecific ST & T wave abnormality- inferior and lateral leads. Abnormal EK09/01/20-[facility] Life Vest[facility]CHO 08/22/20:LV chamber is mildly dilated,LV wall thickness is mildly increased,LV systolic function is moderately reduced,the estimated LVEF is 35-40%(abnormal),RV size is mildly dilated,left atrium chamber is mildly dilated,right atrium chamber is mildly dilated,there is mild thickening of the mitral valve anterior leaflet,there is trace mitral regurgitation,there is mild tricuspid regurgitation.05/10/20 CARDIAC CATH: No significant coronary disease, with severe left ventricular systolic dysfunction with nonischemic cardiomyopathy. 0 TITI DOP: No deep venous thrombosis.05/08/20 CHEST XR: Small pleural effusion. Cardiomegaly. Danis Hinson MD [address] [place], [address], [facility] 09/17/2022 17:06:11 01/28/2023 text/html 01/28/23CC : Car diac follow up dyspnea on -[id number]-yuy man with h/o nonischemic cardiomyopathy, and paroxysmal AFib, who presents for 3 month follow-up. He was last seen in the clinic on 09/17/22, since then he is doing well. He denied chest pain but he reporting dyspnea on exertion.He denies ER visits and hospitalizations since he was last seen. Today reports:Denies chest pain.Denies shortness of breath at rest. Has mild dyspnea on exertion.No orthopnea. No PNDs.Denies heart palpitations.Denies dizziness. Denies syncope or near syncope.No ankle or leg edema.No major bleeding events.No reported side effects from medications. Taking medications as prescribed with no missed doses.Denies snoring, daytime somnolence and AM headache.*Last LDL was 66 done on 05/09/20.Pt dose not takes any statins. Previously: 05/10/20 LIPID: TC 120, TR 162, HDL 21, LDL 66 The tightness was in the middle of the chest and it was continues. He denied any dyspnea on exertion. *He had a positive stress test but now has CPAP. Results from this visit, or from the past:11/21/20 DIGOXIN 1. CMP GL 85, BUN 20, CR 1.32, NA 141, K 4.5, CHL 102, C02 24, CA 9.0, AP 49, AST 17, ALT :Na 140,K 5.2,Cl 99,CO2 26,GLU 88,BUN 17,Cr 1.43,Mg 2.2.05/12/20 M.511 BMP: NA 139, K 4.1, CL 104, CO2 26, GLU 81, BUN 22, CR 1. CBC: WBC 7.0, HGB 14.9, HCT 45.5, PLT 9455705/10/20 LIPID: TC 120, TR 162, HDL 21, LDL PT/INR: PT 13.4, INR 1.011 EKG: AFib05/08/20 EKG: Atrial fibrillation with rapid ventricular response. Ventricular premature complexes. Nonspecific ST & T wave abnormality- inferior and lateral leads. Abnormal EKG3-[facility] Life VestECHO 08/22/20:LV chamber is mildly dilated,LV wall thickness is mildly increased,LV systolic function is moderately reduced,the estimated LVEF is 35-40%(abnormal),RV size is mildly dilated,left atrium chamber is mildly dilated,right atrium chamber is mildly dilated,there is mild thickening of the mitral valve anterior leaflet,there is trace mitral regurgitation,there is mild tricuspid regurgitation.05/10/20 CARDIAC CATH: No significant coronary disease, with severe left ventricular systolic dysfunction with nonischemic cardiomyopathy. 0 TITI DOP: No deep venous thrombosis.05/08/20 CHEST XR: Small pleural effusion. Cardiomegaly. JONATHAN sahni [place] - [facility] 01/28/2023 09:45:56 08/28/2023 text/html 08/28/23CC : Car diac follow up dyspnea on [id number] man with h/o nonischemic cardiomyopathy, and paroxysmal Atrial fibrillation is here for follow up. He was last seen in the clinic on 01/28/23, since then he is doing well. *Last LDL was 82 done on 03/23/23.Pt dose not takes any statins. He denies ER visits and hospitalizations since he was last seen. Today reports:Denies chest pain.Denies shortness of breath at rest. Has mild dyspnea on exertion.No orthopnea. No PNDs.Denies heart palpitations.Denies dizziness. Denies syncope or near syncope.No ankle or leg edema.No major bleeding events.No reported side effects from medications. Taking medications as prescribed with no missed doses.Denies snoring, daytime somnolence and AM headache.*Last LDL was 82 done on 03/23/23.Pt dose not takes any statins. (03/24/2023) : CBC-WBC 6.7 RBC 5.20 HGB 14.8 HCT 45.7 PLT 208 , CMP-NA 139 K 4.0 BUN 24 CR 1.40 GL 94 CA 8.1 MG 2.4 LIPID-TRIG 103 CHOL 151 Direct LDL 82 HDL 29 Previously:The tightness was in the middle of the chest and it was continues. He denied any dyspnea on exertion. *He had a positive stress test but now has CPAP. Results from this visit, or from the past:11/21/20 DIGOXIN 1.15 CMP GL 85, BUN 20, CR 1.32, NA 141, K 4.5, CHL 102, C02 24, CA 9.0, AP 49, AST 17, ALT :Na 140,K 5.2,Cl 99,CO2 26,GLU 88,BUN 17,Cr 1.43,Mg 2.2.05/12/20 M.511 BMP: NA 139, K 4.1, CL 104, CO2 26, GLU 81, BUN 22, CR 1. CBC: WBC 7.0, HGB 14.9, HCT 45.5, PLT 29529 LIPID: TC 120, TR 162, HDL 21, LDL PT/INR: PT 13.4, INR 1.011/ EKG: AFib05/08/20 EKG: Atrial fibrillation with rapid ventricular response. Ventricular premature complexes. Nonspecific ST & T wave abnormality- inferior and lateral leads. Abnormal EK/11/17-[facility] Life VestECHO 08/22/20:LV chamber is mildly dilated,LV wall thickness is mildly increased,LV systolic function is moderately reduced,the estimated LVEF is 35-40%(abnormal),RV size is mildly dilated,left atrium chamber is mildly dilated,right atrium chamber is mildly dilated,there is mild thickening of the mitral valve anterior leaflet,there is trace mitral regurgitation,there is mild tricuspid regurgitation.05/10/20 CARDIAC CATH: No significant coronary disease, with severe left ventricular systolic dysfunction with nonischemic cardiomyopathy. 0 TITI DOP: No deep venous thrombosis.05/08/20 CHEST XR: Small pleural effusion. Cardiomegaly. JONATHAN sahni [place] - [facility] 08/28/2023 10:42:36 02/26/2024 text/html 02/26/24CC : Car [facility] follow [id number]-zhy man with h/o nonischemic cardiomyopathy, and paroxysmal Atrial fibrillation is here for 6 month follow up. He was last seen in the clinic on 08/28/23, since then he is still in afibHe denies ER visits and hospitalizations since he was last seen. Today reports:no ccDenies chest pain.Denies shortness of breath at rest. Has mild dyspnea on exertion.No orthopnea. No PNDs.Denies heart palpitations.Denies dizziness. Denies syncope or near syncope.No ankle or leg edema.No major bleeding events.No reported side effects from medications. Taking medications as prescribed with no missed doses.Denies snoring, daytime somnolence and AM headache.*Last LDL was 82 done on 03/23/23.Pt dose not takes any statins. Previously:(03/24/2023 ) : CBC-WBC 6.7 RBC 5.20 HGB 14.8 HCT 45.7 PLT 208 , CMP-NA 139 K 4.0 BUN 24 CR 1.40 GL 94 CA 8.1 MG 2.4 LIPID-TRIG 103 CHOL 151 Direct LDL 82 HDL 29 The tightness was in the middle of the chest and it was continues. He denied any dyspnea on exertion. *He had a positive stress test but now has CPAP. Results from this visit, or from the past:11/21/20 DIGOXIN 1.15 CMP GL 85, BUN 20, CR 1.32, NA 141, K 4.5, CHL 102, C02 24, CA 9.0, AP 49, AST 17, ALT :Na 140,K 5.2,Cl 99,CO2 26,GLU 88,BUN 17,Cr 1.43,Mg 2.2.05/12/20 M.511 BMP: NA 139, K 4.1, CL 104, CO2 26, GLU 81, BUN 22, CR 1. CBC: WBC 7.0, HGB 14.9, HCT 45.5, PLT 7833305/10/20 LIPID: TC 120, TR 162, HDL 21, LDL PT/INR: PT 13.4, INR 1.011 EKG: AFib05/08/20 EKG: Atrial fibrillation with rapid ventricular response. Ventricular premature complexes. Nonspecific ST & T wave abnormality- inferior and lateral leads. Abnormal EKG3/11/17-[facility] Life VestECHO 08/22/20:LV chamber is mildly dilated,LV wall thickness is mildly increased,LV systolic function is moderately reduced,the estimated LVEF is 35-40%(abnormal),RV size is mildly dilated,left atrium chamber is mildly dilated,right atrium chamber is mildly dilated,there is mild thickening of the mitral valve anterior leaflet,there is trace mitral regurgitation,there is mild tricuspid regurgitation.05/10/20 CARDIAC CATH: No significant coronary disease, with severe left ventricular systolic dysfunction with nonischemic cardiomyopathy. 0 TITI DOP: No deep venous thrombosis.05/08/20 CHEST XR: Small pleural effusion. Cardiomegaly. JAYSON Vaz[facility] - [facility] 08/31/2024 08:47:42 08/31/2024 text/html 08/28/24CC : Cardiac follow [id number] man with h/o nonischemic cardiomyopathy, and paroxysmal Atrial fibrillation is here for 6 month follow up. He was last seen in the clinic on 02/26/24, since then he is doing well, now more activeHe denies ER visits and hospitalizations since he was last seen. Today reports:no ccDenies chest pain.Denies shortness of breath at rest. Has mild dyspnea on exertion.No orthopnea. No PNDs.Denies heart palpitations.Denies dizziness. Denies syncope or near syncope.No ankle or leg edema.No major bleeding events.No reported side effects from medications. Taking medications as prescribed with no missed doses.Denies snoring, daytime somnolence and AM headache.*Last LDL was 82 done on 03/23/23.Pt dose not takes any statins. Previously:*He had a positive stress test but now has CPAP. Results from this visit, or from the past:11/21/20 DIGOXIN 1. CMP GL 85, BUN 20, CR 1.32, NA 141, K 4.5, CHL 102, C02 24, CA 9.0, AP 49, AST 17, ALT :Na 140,K 5.2,Cl 99,CO2 26,GLU 88,BUN 17,Cr 1.43,Mg 2.2.05/12/20 M.511 BMP: NA 139, K 4.1, CL 104, CO2 26, GLU 81, BUN 22, CR 1. CBC: WBC 7.0, HGB 14.9, HCT 45.5, PLT 00013 LIPID: TC 120, TR 162, HDL 21, LDL PT/INR: PT 13.4, INR 1.011 EKG: AFib05/08/20 EKG: Atrial fibrillation with rapid ventricular response. Ventricular premature complexes. Nonspecific ST & T wave abnormality- inferior and lateral leads. Abnormal EKG3/11/17-[facility] Vest[facility] 08/22/20:LV chamber is mildly dilated,LV wall thickness is mildly increased,LV systolic function is moderately reduced,the estimated LVEF is 35-40%(abnormal),RV size is mildly dilated,left atrium chamber is mildly dilated,right atrium chamber is mildly dilated,there is mild thickening of the mitral valve anterior leaflet,there is trace mitral regurgitation,there is mild tricuspid regurgitation.05/10/20 CARDIAC CATH: No significant coronary disease, with severe left ventricular systolic dysfunction with nonischemic cardiomyopathy. 0 TITI DOP: No deep venous thrombosis.05/08/20 CHEST XR: Small pleural effusion. Cardiomegaly. Danis Hinson MD [address] [place], [address], [facility] - [facility] 08/31/2024 09:30:58
== END 2024-11-04 14:06 | disposition home or self-care (01) ==
PROVIDERS: PCP Family Medicine; Visit Provider Podiatrist Foot & Ankle Surgery
DX: M79.661 Pain in right lower leg (principal)
CPT/HCPCS: 93971

== ENCOUNTER 2024-11-04 15:17 | Outpatient (CLI) | payer BC, SELFPAY ==
--- OUTSIDE RECORDS SUMMARY | 2024-11-04 15:22 | XMS_ITS | Clinical Summary ---
Author Organization [facility] Care Team Providers Care Mechanical Design Engineer Facilities Name Role Phone Unavailable Primary Care Provider Unavailabl e Social History Tobacco Use Types Packs/Day Years Used Date Smoking Tobacco: Never Assessed Sex and Gender Information Value Date Recorded Sex Assigned at Not on file Legal Sex Male 1:25 PM PRESSER HAND Gender Identity Not on file Sexual Orientation [...]
[2024-11-04 19:44] LABS: Basophils Absolute Auto 0.1 K/mm3 (0.0-0.1); Basophils Percent Auto 0.5 % (0.2-1.2); Eosinophils Percent Auto 0.2 % (0-4.4); Hematocrit 45.6 % (42.0-52.0); Hemoglobin 14.6 g/dL (14.0-18.0); Immature Granulocyte Absolute 0.03 K/mm3 (0.00-0.031); Immature Granulocyte Percent A 0.3 % (0-0.5); Lymphocytes Absolute Auto 1.44 K/mm3 (0.9-3.2); Lymphocytes Percent Auto 15.1 % (18.3-44.2); Mean Corpuscular Hemoglobin 28.1 pg (26-34); Mean Corpuscular Volume 87.7 fl (80-100); Mean Platelet Volume 10.1 fl (7.4-10.4); Monocytes Percent Auto 10.5 % (2.6-8.5); Neutrophils Percent Auto 73.4 % (45.5-73.1); Platelet Count Result 218 k/mm3 (150-375); Red Cell Distribution Width 13.4 % (11.5-14.5); White Blood Count 9.5 K/mm3 (4.5-10.0)
[2024-11-04 20:27] LABS: Alanine Aminotransferase 20 U/L (6-50); Albumin Level 4.1 g/dL (3.5-5.1); Alkaline Phosphatase 48 U/L (38-126); Anion Gap 6 mmol/L (4-12); Aspartate Amino Transferase 25 U/L (17-59); Bilirubin,Total 0.8 mg/dL (0.2-1.3); Blood Urea Nitrogen 20 mg/dL (9-20); CRP 12.6 mg/dL (<1.0); Calcium 8.4 mg/dL (8.4-10.2); Carbon Dioxide 29 mmol/L (22-30); Chloride 103 mmol/L (98-107); Estimated Glomerular Filt Rate 49; Glucose 89 mg/dL (65-110); Potassium 4.5 mmol/L (3.4-5.0); Sodium 138 mmol/L (137-145); Uric Acid 8.2 mg/dL (3.5-8.5)
== END 2024-11-04 15:18 | disposition home or self-care (01) ==
LOC: ANHGOSHLAB 15:20
PROVIDERS: PCP Family Medicine
DX: M10.071 Idiopathic gout, right ankle and foot (principal)
CPT/HCPCS: 36415; 80053; 84550; 85025; 86140